=== PATIENT | male | born 1955 | race Caucasian/White ===

== ENCOUNTER → 2017-05-02 12:34 | Outpatient (POV) | payer MEDICAID, SELFPAY ==
[2017-05-02 12:58] VITALS: BP 119/83; PULSE 102; RESP 18; O2SAT 96; BMI 20.2
--- NOTE | 2017-05-02 13:07 | HMH.PAINSOAP ---
[facility] Pain Management SOAP Note Subjective:: This patient is a pleasant 61-year-old white male who we are treating for neck pain as well as low back pain with radiculopathy symptoms. He does have postlaminectomy syndrome of the lumbar spine with lumbar radiculopathy symptoms. He is currently being medically managed with methadone 10 mg 2 tablets 4 times daily. He also does continue to get injections which helps him significantly. He is stable on his dose of medication. He has been appropriate with his Luis and urine drug screen. [facility] #[id number]. It has been 4 months since his last injection so he is needing a repeat cervical epidural steroid injection. We will also give him 2 prescriptions of methadone 10 mg, 2 tablets 4 times a day. Objective:: Alert and oriented ?3 in no acute distress. Decreased range of motion of the cervical spine. Tenderness over the midline of the cervical spine and lumbar spine. Motor strength of the upper and lower extremities is 5/5. There is no gross sensory deficit. Assessment:: Degenerative disc disease of the cervical and lumbar spine with cervical and lumbar radiculopathy symptoms. Plan:: It has been 4 months since his last injection so he is needing a repeat cervical epidural steroid injection. We will also give him 2 prescriptions of methadone 10 mg, 2 tablets 4 times a day.
[2017-05-02 14:05] LABS: Amphetamine/Metha Screen,Urine Negative ng/mL (<1000); Barbiturates Screen,Urine Negative ng/mL (<200); Benzodiazepines Screen,Urine Negative ng/mL (200); Cannabinoid Screen,Urine Negative ng/mL (<50); Cocaine Screen,Urine Negative ng/g (<300); Methadone Screen,Urine Positive ng/mL (<300); Opiate Screen,Urine Negative ng/mL (<300); Phencyclidine Screen,Urine Negative ng/mL (<25)
[2017-05-12 12:18] LABS: Amphetamines Negative (Cutoff=500)
[2017-05-12 12:18] LABS: Methadone Positive (.)
[2017-05-12 12:34] LABS: Methadone (GC/MS) 16340 ng/mL (Cutoff=100)
[2017-05-13 17:05] LABS: Opiates Negative (Cutoff=100)
== END ==
PROVIDERS: Family Provider Emergency Medicine; PCP Emergency Medicine; Visit Provider Anesthesiology
DX: M54.12 Radiculopathy, cervical region (principal); M54.16 Radiculopathy, lumbar region
CPT/HCPCS: 80305; 80361; 99212; G0480

== ENCOUNTER 2017-06-10 14:17 | Day surgery (SDC) | payer MEDICAID, SELFPAY ==
[2017-06-10 14:31] VITALS: BP 121/75; PULSE 98; TEMP 36.8; O2SAT 96; BMI 23.3
--- NOTE | 2017-06-10 15:03 | HMH.PMPROC ---
- Procedure Date: 06/10/17 Time: 15:03 Anesthesiologist:: Chris Oconnor MD Complications:: None Pre-procedure Diagnosis:: Degenerative disc disease of the cervical spine with cervical radiculopathy symptoms Post-procedure Diagnosis:: Same Indications for Procedure:: This patient is a pleasant 61-year-old white male who we are treating for neck pain with cervical radiculopathy symptoms. He has increasing pain in his neck radiating to both shoulders. We will do a cervical epidural steroid injection today to see if this gives him some relief. Procedure Details:: Cervical epidural steroid injection under fluoroscopy Informed consent was obtained and the risks and benefits of the procedure was explained to the patient. The patient was taken to the procedure room placed prone on the procedure table. The neck was prepped using ChloraPrep. The skin and subcutaneous tissues were anesthetized using lidocaine. I placed a 18-gauge epidural needle into the C5-C6 interspace and advanced using [id number] to air and fluoroscopic guidance. After confirmation of needle placement in the epidural space with dye, I injected 3 mL's lidocaine 1.5% and Depo-Medrol 80 mg. The patient tolerated the procedure well with no complications. Plan and Disposition:: We will follow-up with him in 2 weeks. We will reevaluate his symptoms at that time.
[2017-06-10 15:06] VITALS: BP 134/83; BP 136/83; PULSE 108; PULSE 114; RESP 18; RESP 20
--- NOTE | 2017-06-10 15:11 | P.PCN_ITS ---
- Procedure Date: 06/10/17 Time: 15:03 Anesthesiologist:: Chris Oconnor MD Complications:: None Pre-procedure Diagnosis:: Degenerative disc disease of the cervical spine with cervical radiculopathy symptoms Post-procedure Diagnosis:: Same Indications for Procedure:: This patient is a pleasant 61-year-old white male who we are treating for neck pain with cervical radiculopathy symptoms. He has increasing pain in his neck radiating to both shoulders. We will do a cervical epidural steroid injection today to see if this gives him some relief. Procedure Details:: Cervical epidural steroid injection under fluoroscopy Informed consent was obtained and the risks and benefits of the procedure was explained to the patient. The patient was taken to the procedure room placed prone on the procedure table. The neck was prepped using ChloraPrep. The skin and subcutaneous tissues were anesthetized using lidocaine. I placed a 18- gauge epidural needle into the C5-C6 interspace and advanced using loss-of- resistance to air and fluoroscopic guidance. After confirmation of needle placement in the epidural space with dye, I injected 3 mL's lidocaine 1.5% and Depo-Medrol 80 mg. The patient tolerated the procedure well with no complications. Plan and Disposition:: We will follow-up with him in 2 weeks. We will reevaluate his symptoms at that time.
[2017-06-10 15:25] VITALS: BP 149/75; PULSE 94; RESP 18; TEMP 36.7; O2SAT 98
== END 2017-06-10 15:25 | disposition home or self-care (01) ==
LOC: SC.PAINP 14:18
PROVIDERS: Family Provider Emergency Medicine; PCP Emergency Medicine; Visit Provider Anesthesiology
DX: M50.10 Cervical disc disorder with radiculopathy, unspecified cervical region (principal)
CPT/HCPCS: 62321; J1040; Q9966

== ENCOUNTER → 2017-06-27 10:09 | Outpatient (POV) | payer MEDICAID, SELFPAY ==
[2017-06-27 10:17] VITALS: BP 145/82; PULSE 110; RESP 20; TEMP 36.9; O2SAT 97; BMI 20.2
--- NOTE | 2017-06-27 11:37 | HMH.PAINSOAP ---
[facility] Pain Management SOAP Note Subjective:: Patient is a pleasant 61-year-old white male who presents today for follow-up after cervical epidural steroid injection. Patient states he is having significant relief. Patient states he has 80-90% relief for several weeks. Patient's currently being medically managed with methadone 10 mg 2 tab 4 times a day. Patient rates his pain a 6 out of 10 today. He describes his pain is achy, constant, dull. Patient states his pain began in 1997 when he fell from 32 feet. Patient is taking ibuprofen however it is upsetting his stomach. Patient has had some bleeding in the past. The patient and I had a discussion about utilizing anti-inflammatories with gastric protection. Patient's SELENA #[id number] reviewed and appropriate. Patient's urine drug screen has been appropriate in the past. ROS General: no recent weight change, no fever, no sleep disturbances Respiratory: no cough, no shortness of air, no recurring pulmonary infections Cardiovascular/Peripheral Vascular: No chest pain, No palpitations, no edema, no shortness of breath. Gastrointestinal: no incontinence, normal bowel movements reported Genitourinary: no incontinence Musculoskeletal: Back pain, neck pain Psychiatric: normal mood/ affect, Neurological: [denies weakness in extremities], [denies balance issues] Objective:: Physical Exam General: Alert and oriented x3, no acute distress, pleasant and cooperative, [on room air] Lungs: Resps E/U, Symmetrical chest expansion, Eyes: PERRL Musculoskeletal: Flexion and extension of cervical and lumbar spine somewhat guarded secondary to pain, deep tendon reflexes normal, strength in upper and lower extremities [5/5], [abnormal gait noted] Neurological: speech clear, confectionery cooker equal, no gross sensory deficits Assessment:: Degenerative disc disease of the cervical spine with cervical radiculopathy, lumbar postlaminectomy syndrome Plan:: She states he has had an EKG in the last year we will confirm this. Patient understands that he needs to have a yearly EKG. We will refill his methadone today and give him 2 prescriptions. He is to call us for the third prescription. Patient's Selena and urine drug screen both reviewed and appropriate. Dr. Oconnor has reviewed his chart and agrees with this plan of care. We will pill count him in several weeks to ensure compliance. This note was dictated using voice recognition software and may contain errors or omissions
--- NOTE | 2017-06-27 11:41 | P.CONS_ITS ---
[facility] Pain Management SOAP Note Subjective:: Patient is a pleasant 61-year-old white male who presents today for follow-up after cervical epidural steroid injection. Patient states he is having significant relief. Patient states he has 80-90% relief for several weeks. Patient's currently being medically managed with methadone 10 mg 2 tab 4 times a day. Patient rates his pain a 6 out of 10 today. He describes his pain is achy, constant, dull. Patient states his pain began in 1997 when he fell from 32 feet. Patient is taking ibuprofen however it is upsetting his stomach. Patient has had some bleeding in the past. The patient and I had a discussion about utilizing anti-inflammatories with gastric protection. Patient's SELENA # [id number] reviewed and appropriate. Patient's urine drug screen has been appropriate in the past. ROS General: no recent weight change, no fever, no sleep disturbances Respiratory: no cough, no shortness of air, no recurring pulmonary infections Cardiovascular/Peripheral Vascular: No chest pain, No palpitations, no edema, no shortness of breath. Gastrointestinal: no incontinence, normal bowel movements reported Genitourinary: no incontinence Musculoskeletal: Back pain, neck pain Psychiatric: normal mood/ affect, Neurological: [denies weakness in extremities], [denies balance issues] Objective:: Physical Exam General: Alert and oriented x3, no acute distress, pleasant and cooperative, [ on room air] Lungs: Resps E/U, Symmetrical chest expansion, Eyes: PERRL Musculoskeletal: Flexion and extension of cervical and lumbar spine somewhat guarded secondary to pain, deep tendon reflexes normal, strength in upper and lower extremities [5/5], [abnormal gait noted] Neurological: speech clear, accounting coordinator equal, no gross sensory deficits Assessment:: Degenerative disc disease of the cervical spine with cervical radiculopathy, lumbar postlaminectomy syndrome Plan:: She states he has had an EKG in the last year we will confirm this. Patient understands that he needs to have a yearly EKG. We will refill his methadone today and give him 2 prescriptions. He is to call us for the third prescription. Patient's Selena and urine drug screen both reviewed and appropriate. Dr. Oconnor has reviewed his chart and agrees with this plan of care. We will pill count him in several weeks to ensure compliance. This note was dictated using voice recognition software and may contain errors or omissions
== END ==
PROVIDERS: Family Provider Emergency Medicine; PCP Emergency Medicine; Visit Provider Clinical Nurse Specialist Family Health
DX: M96.1 Postlaminectomy syndrome, not elsewhere classified (principal); M54.12 Radiculopathy, cervical region
CPT/HCPCS: 99212

== ENCOUNTER → 2017-09-02 11:02 | Outpatient (CLI) | payer MEDICAID, SELFPAY ==
[2017-09-02 12:15] LABS: Amphetamine/Metha Screen,Urine Negative ng/mL (<1000); Barbiturates Screen,Urine Negative ng/mL (<200); Benzodiazepines Screen,Urine Negative ng/mL (200); Cannabinoid Screen,Urine Negative ng/mL (<50); Cocaine Screen,Urine Negative ng/g (<300); Methadone Screen,Urine Positive ng/mL (<300); Opiate Screen,Urine Negative ng/mL (<300); Phencyclidine Screen,Urine Negative ng/mL (<25)
[2017-09-09 06:27] LABS: Opiates Negative (Cutoff=100)
== END ==
PROVIDERS: Visit Provider Clinical Nurse Specialist Family Health
DX: Z79.899 Other long term (current) drug therapy (principal)
CPT/HCPCS: 80305; 80361; 80365; G0480

== ENCOUNTER → 2017-09-05 12:48 | Outpatient (POV) | payer MEDICAID, SELFPAY ==
[2017-09-05 13:13] VITALS: BP 123/66; PULSE 75; RESP 18; O2SAT 99; BMI 20.9
--- NOTE | 2017-09-05 15:47 | HMH.PAINSOAP ---
[facility] Pain Management SOAP Note Subjective:: Patient is a pleasant 62-year-old white male who presents today for medication refills. Patient is currently being managed with methadone 10 mg 2 tabs p.o. 4 times daily. Patient rates his pain a 3 out of 10 today. He describes his pain is achy constant and dull. Patient states that this all began in 1997 when he fell from 32 feet. Patient would like to pursue another cervical epidural steroid injection. Patient states he gets 89% relief with these for several weeks. Patient is unable to take anti-inflammatories due to gastric issues. Patient has completed physical therapy in the past. Patient's SELENA #[id number] reviewed and appropriate. Patient's urine drug screen did show positive for amphetamines, we this out for confirmation. ROS General: no recent weight change, no fever, no sleep disturbances Respiratory: no cough, no shortness of air, no recurring pulmonary infections Cardiovascular/Peripheral Vascular: No chest pain, No palpitations, no edema, no shortness of breath. Gastrointestinal: no incontinence, normal bowel movements reported Genitourinary: no incontinence Musculoskeletal: Back pain, neck pain Psychiatric: normal mood/ affect Neurological: [denies weakness in extremities], [denies balance issues] Objective:: Physical Exam General: Alert and oriented x3, no acute distress, pleasant and cooperative, [on room air] Lungs: Resps E/U, Symmetrical chest expansion, Eyes: PERRL Musculoskeletal: Flexion and extension of her vehicle and lumbar spine somewhat guarded secondary to pain, deep tendon reflexes normal, strength in upper and lower extremities [5/5], antalgic gait noted Neurological: speech clear, buyer tobacco head equal, no gross sensory deficits Assessment:: Degenerative disc disease of the cervical spine with cervical radiculopathy, lumbar postlaminectomy syndrome Plan:: We will refill the patient's methadone 10 mg 2 tabs p.o. 4 times daily. We will give him 2 months worth of prescriptions. Patient's urine drug screen is pending confirmation. Patient's SELENA reviewed. Patient can pickler helper her third month prescription if everything is appropriate. Dr. Oconnor has reviewed this chart and agrees with this plan of care. I will follow-up with this patient in 3 months. We will also schedule a cervical C5-C6 epidural steroid injection. Given the efficacy of this in the past. Patient has been prescribed a controlled substance after being counseled on the medication, medication safety, and possible side effects. SELENA report has been obtained and reviewed prior to prescription and found to be appropriate. Opioid contract was reviewed and signed by the patient, and that they have agreed to all of the terms set forth by our compliance program. This note was dictated using voice recognition software and may contain errors or omissions
--- NOTE | 2017-09-05 15:50 | P.CONS_ITS ---
[facility] Pain Management SOAP Note Subjective:: Patient is a pleasant 62-year-old white male who presents today for medication refills. Patient is currently being managed with methadone 10 mg 2 tabs p.o. 4 times daily. Patient rates his pain a 3 out of 10 today. He describes his pain is achy constant and dull. Patient states that this all began in 1997 when he fell from 32 feet. Patient would like to pursue another cervical epidural steroid injection. Patient states he gets 89% relief with these for several weeks. Patient is unable to take anti-inflammatories due to gastric issues. Patient has completed physical therapy in the past. Patient's SELENA # [id number] reviewed and appropriate. Patient's urine drug screen did show positive for amphetamines, we this out for confirmation. ROS General: no recent weight change, no fever, no sleep disturbances Respiratory: no cough, no shortness of air, no recurring pulmonary infections Cardiovascular/Peripheral Vascular: No chest pain, No palpitations, no edema, no shortness of breath. Gastrointestinal: no incontinence, normal bowel movements reported Genitourinary: no incontinence Musculoskeletal: Back pain, neck pain Psychiatric: normal mood/ affect Neurological: [denies weakness in extremities], [denies balance issues] Objective:: Physical Exam General: Alert and oriented x3, no acute distress, pleasant and cooperative, [ on room air] Lungs: Resps E/U, Symmetrical chest expansion, Eyes: PERRL Musculoskeletal: Flexion and extension of her vehicle and lumbar spine somewhat guarded secondary to pain, deep tendon reflexes normal, strength in upper and lower extremities [5/5], antalgic gait noted Neurological: speech clear, principal quality engineer equal, no gross sensory deficits Assessment:: Degenerative disc disease of the cervical spine with cervical radiculopathy, lumbar postlaminectomy syndrome Plan:: We will refill the patient's methadone 10 mg 2 tabs p.o. 4 times daily. We will give him 2 months worth of prescriptions. Patient's urine drug screen is pending confirmation. Patient's SELENA reviewed. Patient can car pick up driver her third month prescription if everything is appropriate. Dr. Oconnor has reviewed this chart and agrees with this plan of care. I will follow-up with this patient in 3 months. We will also schedule a cervical C5-C6 epidural steroid injection. Given the efficacy of this in the past. Patient has been prescribed a controlled substance after being counseled on the medication, medication safety, and possible side effects. SELENA report has been obtained and reviewed prior to prescription and found to be appropriate. Opioid contract was reviewed and signed by the patient, and that they have agreed to all of the terms set forth by our compliance program. This note was dictated using voice recognition software and may contain errors or omissions
== END ==
PROVIDERS: Family Provider Emergency Medicine; PCP Emergency Medicine; Visit Provider Clinical Nurse Specialist Family Health
DX: M54.12 Radiculopathy, cervical region (principal)
CPT/HCPCS: 99212

== ENCOUNTER → 2020-09-05 17:09 | Outpatient (CLI) | payer MEDICAID, SELFPAY ==
[2020-09-05 17:55] LABS: Basophils # 0.1 K/mm3 (0-0.2); Basophils % 0.7 % (0.1-2.0); Chloride 100 mmol/L (98-107); Eosinophils # 0.4 K/mm3 (0.0-0.4); Eosinophils % 5.1 % (0.1-12.0); Hematocrit 41.9 % (42.0-52.0); Hemoglobin 14.3 g/dL (14.1-18.0); Lymphocytes # 2.5 K/mm3 (0.7-4.5); Lymphocytes % 33.1 % (10-50); Mean Corpuscular HGB Conc 34.1 g/dL (31.8-35.4); Mean Corpuscular Hemoglobin 31.2 pg (27.0-31.2); Mean Corpuscular Volume 91.5 fl (80-94); Mean Platelet Volume 11.2 fl (7.4-10.4); Monocytes # 0.5 K/mm3 (0.1-1.0); Monocytes % 6.1 % (1.7-9.3); Neutrophils # 4.1 K/mm3 (1.8-7.8); Platelet Count 186 K/mm3 (142-424); Red Blood Count 4.58 M/mm3 (4.60-6.20); Red Cell Distribution Width 12.9 % (11.5-17.5); White Blood Count 7.4 K/mm3 (4.8-10.8)
[2020-09-05 17:56] LABS: Potassium 4.6 mmoL/L (3.5-5.1); Sodium 142 mmol/L (136-145)
[2020-09-05 17:58] LABS: Alanine Aminotransferase 11 U/L (12-78); Albumin Level 4.6 g/dl (3.5-5.0); Albumin/Globulin Ratio 1.4 (1.1-1.8); Alkaline Phosphatase 83 U/L (38-126); Anion Gap 15.6 mEq/L (5-15); Aspartate Amino Transferase 41 U/L (17-59); Bilirubin,Total 0.3 mg/dl (0.2-1.3); Blood Urea Nitrogen 16 mg/dl (9-20); Carbon Dioxide 31 mmol/L (22.0-30.0); Estimated Glomerular Filt Rate 67 ml/min (>60); GFR (African American) 82 ML/MIN (>60); Globulin 3.2 g/dL (1.3-3.2); Total Protein,Serum 7.8 g/dl (6.3-8.2)
[2020-09-05 17:59] LABS: Calcium 9.1 mg/dl (8.4-10.2); Glucose 104 mg/dl (74-100)
[2020-09-05 18:16] LABS: Free T4 (Free Thyroxine) 1.41 ng/dl (0.78-2.19)
[2020-09-05 18:46] LABS: Erythrocyte Sedimentation Rate 17 mm/hr (0-20)
== END ==
PROVIDERS: Visit Provider Emergency Medicine
DX: Z00.00 Encounter for general adult medical examination without abnormal findings (principal); R10.32 Left lower quadrant pain; R11.0 Nausea; F41.9 Anxiety disorder, unspecified; F17.210 Nicotine dependence, cigarettes, uncomplicated
CPT/HCPCS: 80053; 84439; 84443; 85025; 85651

== ENCOUNTER → 2020-10-17 17:22 | Outpatient (CLI) | payer MEDICAID, SELFPAY ==
[2020-10-17 18:46] LABS: Amphetamine/Metha Screen,Urine Negative ng/ml (<1000)
[2020-10-17 18:47] LABS: Barbiturates Screen,Urine Negative ng/ml (<200)
[2020-10-17 18:48] LABS: Benzodiazepines Screen,Urine Negative ng/ml (<200); Cannabinoid Screen,Urine Negative ng/ml (<50)
[2020-10-17 18:49] LABS: Cocaine Screen,Urine Negative ng/ml (<300); Methadone Screen,Urine Positive ng/ml (<300)
[2020-10-17 18:50] LABS: Opiate Screen,Urine Positive ng/ml (<300)
[2020-10-17 18:51] LABS: Phencyclidine Screen,Urine Negative ng/ml (<25)
== END ==
PROVIDERS: Visit Provider Emergency Medicine
DX: Z79.899 Other long term (current) drug therapy (principal)
CPT/HCPCS: 80305

== ENCOUNTER 2020-10-29 12:55 | Outpatient (RCR) | payer MEDICAID, SELFPAY ==
--- NOTE | 2020-10-29 13:47 | HMH.PTOPEV ---
PT Outpatient Evaluation Rehab PT Outpatient Evaluation Start: 10/29/20 13:02 Freq: Status: Active Protocol: Document 10/29/20 13:33 TITOARBEN (Rec: 10/29/20 13:47 RICHY [id number]) Electronically Signed By Twin Castro, PT 10/29/20 13:33 Outpatient Therapy Subjective History Subjective History Patient is a 65 year old male presenting to outpatient PT with reports of chronic lumbar spine pain with BLE radicular symptoms to B toes. No recent imaging to report. Patient also complains of BLE weakness and poor balance resulting in falls x 3 over the past 2 months. Patient underwent LS laminectomy in 1999. Unable to specify which segments. Comorbidities include hx of COPD, L wrist ORIF and L knee scope. Chief Complaint Pain,Stiff,Paresthesia, Weakness Symptom Type Ache,Sharp,Dull,Burning, Numbness,Tingling Symptoms Aggravated By Standing,Bending/Stooping, Physical Activity,Walking, Lifting Prior Functional Limitations Standing,Walking Current Functional Limitations Lifting,Housework,Driving, Sleeping,Standing,Squatting, Recreation Activity,Walking, Stairs,Balance,Bending/ Stooping Symptom Description Constant but Variable Level of pain today (0-10) 8 Pain scale - at its best (0-10) 6 Pain scale - at its worst (0-10) 9 Lumbopelvic Eval Posture Thoracic Spine Posture Standing Position Increased Kyphosis Lumbar Spine Posture Standing Position Decreased Lordosis Assistive device Assistive Devices Straight Cane Palapation tenderness bilateral thoracic spinal tenderness Yes: T12-S1 3/4 lumbar spinal tenderness Yes: paraspinal tenderness Yes: buttock tenderness Yes: Lumbar/Sacral Palpation Findings Tenderness Lumbar/Sacral Palpation Overall Comment B SIJ 3/4 Accessory Movement T12 bilateral L-spine Vertebrae Accessory Movements Central P/A [place] that Elicit Symptoms L2 bilateral L3 bilateral L4 bilateral L5 bilateral S1 bilateral Range of Motion Lumbar Sp
== END 2020-10-29 12:59 | disposition home or self-care (01) ==
LOC: PT 12:55
PROVIDERS: Visit Provider Emergency Medicine
DX: M54.5 Low back pain (principal)
CPT/HCPCS: 97163

== ENCOUNTER 2024-11-13 10:59 | Outpatient (CLI) | payer MEDICARE, MEDICAID, SELFPAY ==
[2024-11-13 15:23] LABS: Hematocrit 41.3 % (42.0-52.0); Hemoglobin 14.0 g/dL (14.1-18.0); Immature Granulocytes % 0.1 %; Mean Corpuscular HGB Conc 33.9 g/dL (31.8-35.4); Mean Corpuscular Hemoglobin 30.8 pg (27.0-31.2); Mean Corpuscular Volume 91.0 fl (80-94); Nucleated Red Blood Cells % 0 %; Platelet Count 176 K/mm3 (142-424); Red Blood Count 4.54 M/mm3 (4.60-6.20); Red Cell Distribution Width-SD 41.0 fL; White Blood Count 7.4 K/mm3 (4.8-10.8)
[2024-11-13 16:15] LABS: Alanine Aminotransferase 12 U/L (12-78); Albumin Level 4.8 g/dl (3.5-5.0); Albumin/Globulin Ratio 1.7 (1.1-1.8); Alkaline Phosphatase 75 U/L (38-126); Anion Gap 11.1 mEq/L (5-15); Aspartate Amino Transferase 44 U/L (17-59); Bilirubin,Total 0.4 mg/dl (0.2-1.3); Blood Urea Nitrogen 15 mg/dl (9-20); Calcium 9.5 mg/dl (8.4-10.2); Carbon Dioxide 30 mmol/L (22.0-30.0); Chloride 103 mmol/L (98-107); Cholesterol 167 mg/dl (140-200); Creatinine,Serum 1.00 mg/dl (0.66-1.25); Estimated Glomerular Filt Rate 74 ml/min (>60); GFR (African American) 90 ML/MIN (>60); Globulin 2.8 g/dL (1.3-3.2); Glucose 84 mg/dl (74-100); HDL Cholesterol 47 mg/dl (40-60); Potassium 4.1 mmoL/L (3.5-5.1); Sodium 140 mmol/L (136-145); Total Protein,Serum 7.6 g/dl (6.3-8.2); Triglycerides 110 mg/dl (30-150)
[2024-11-13 16:46] LABS: Thyroid Stimulating Hormone 2.10 uIU/mL (0.465-4.68)
--- OUTSIDE RECORDS SUMMARY | 2024-11-14 12:13 | XMS_ITS | Encounter Summary ---
Author Organization [employer] ([place], [place], [place], [place]) Address [address] [place] [address] Care Team Providers Care Slitter Processed Film Name Role Phone Unavailable Primary Care Provider Unavailabl e Reason for Referral * CAT Scan (Routine) - Closed Specialty Diagnoses / Procedures Referred By Contac t Referred To Contact Radiology Diagnoses Cigarette smoker Procedures CT Lung Screening Initial Italia Honeycutt NP [address] [place] [address] Phone: tel: fax: [facility] [address] [place] [address] Phone: tel: fax: Referral ID Status Reason Start Date Expiration Date Visits Re quested Visits Authorized [id number] Closed 06/21/2023 06/20/2024 1 1 Encounter Details Date Type Department Care Team (Late st Contact Info) Description 06/21/2023 Outside Orders [facility] [address] [place] [address] Italia Honeycutt NP [address] [place] [address] Cigarette smoker (Primary Dx) Social History Tobacco Use Types Packs/Day Years Used Date Smoking Tobacco: Never Assessed Food Insecurity Answer Date Recorded Food run out past 12 months Not on file 06/02 Food did not last past 12 months Not on file 06/21/2023 Employment Answer Date Recorded Help finding and keeping a job Not on file 0 06/21/2023 Family and Community Support Answer Venancio e Recorded Help with Day to Day Activities Not on file 06/21/2023 Feeling Lonely or Isolated Not on file 06/20 Educational Attainment Answer Date Anton rded Speak language other than Zambian at home Not on file 06/21/2023 Want help with school or training Not on file 06/21/2023 Substance Use Answer Date Recorded Used prescription meds for non-medical reasons N ot on file 06/21/2023 Used illegal drugs past 12 months Not on file 06/21/2023 Sex and Gender Information Value Date Recorded Sex Assigned at Not on file Legal Sex Male 7:01 PM CDT Gender Identity Not on file Sexual Orientation Not on file documented as of this encounter Plan of Treatment Not on file documented as of this encounter Results * CT Lung Screening Initial (07/12/2023 11:50 AM EDT) Anatomical Region Laterality Modality Chest, Lung Computed Tomogra phy (CT) 07/12/2023 1:07 PM EDT Impressions 07/12/2023 2:39 PM EDT 4 mm left upper lobe nodule is likely unchanged. Lung RADS category 2. 12 month low-dose chest CT recommended. Images reviewed, interpreted, and dictated by Dr. Hazel Jorgensen. Transcribed by Jody Araujo PA-C. Narrative 07/12/2023 2:[address] SCAN OF THE CHEST 07/12/2023 11:34 AM HISTORY: Current smoker with 40 pack-year smoking history. COMPARISON: September 2019. PROCEDURE: Axial images were obtained from the lung apex to the mid abdomen by computed tomography. Low dose protocol was utilized. The CTDIvol is 1.84 mGy. The DLP is 75.69 mGy-cm. This study was performed with techniques to keep radiation doses as low as reasonably achievable, (ALARA). Individualized dose reduction techniques using automated exposure control or adjustment of mA and/or kV according to the patient size were employed. FINDINGS: CHEST: There is no axillary adenopathy. There is no hilar or mediastinal adenopathy. The heart is proper size. There is no pericardial or pleural effusion. There is a 4 mm left upper lobe nodule. This is best seen on image 16 and is likely unchanged. There is emphysema and biapical scar. There is evidence of prior granulomatous disease. Lungs are otherwise clear. There is no consolidation. Limited images of the upper abdomen demonstrate nonobstructing right renal stones. us Italia Honeycutt NP IMG CT ORDERABLES Final Result documented in this encounter Visit Diagnoses Diagnosis Cigarette smoker- Primary Tobacco use disorder Cigarette smoker Tobacco use disorder documented in this encounter
--- OUTSIDE RECORDS SUMMARY | 2024-11-14 12:13 | XMS_ITS | Encounter Summary ---
Author Organization [employer] ([place], [place], [place], [place]) Address [address] [place] [address] Care Team Providers Care Clutch Specialist Name Role Phone Unavailable Primary Care Provider Unavailabl e Encounter Details Date Type Department Care Team (Late st Contact Info) Description 09/11/2019 Transcribed Document [facility] [place] Family Medicine [facility] [place] [address] ProviderGraciela MD [address] [place] [id number] Social History Tobacco Use Types Packs/Day Years Used Date Smoking Tobacco: Never Assessed Sex and Gender Information Value Date Recorded Sex Assigned at Not on file Legal Sex Male 7:01 PM CDT Gender Identity Not on file Sexual Orientation Not on file documented as of this encounter Miscellaneous Notes * Cerner Conversion Note - Historical ProviderMD - 09/11/2019 1:38 PM CDT documented in this encounter Plan of Treatment Not on file documented as of this encounter Visit Diagnoses Not on filedocumented in this encounter
--- OUTSIDE RECORDS SUMMARY | 2024-11-14 12:13 | XMS_ITS | Encounter Summary ---
Author Organization [employer] ([place], [place], [place], [place]) Address [address] [place] [address] Care Team Providers Care Recycling Program Manager Name Role Phone Unavailable Primary Care Provider Unavailabl e Encounter Details Date Type Department Care Team (Late st Contact Info) Description 09/11/2019 Transcribed Document [facility] [place] Family Medicine [place] [address] ProviderGraciela MD [address] [place] [id number] Social History Tobacco Use Types Packs/Day Years Used Date Smoking Tobacco: Never Assessed Sex and Gender Information Value Date Recorded Sex Assigned at Not on file Legal Sex Male 7:01 PM CDT Gender Identity Not on file Sexual Orientation Not on file documented as of this encounter Miscellaneous Notes * Cerner Conversion Note - Graciela ProviderMD - 09/11/2019 1:35 PM CDT Care Management Assessment/Plan Entered On: 09/11/2019 13:37 EDT Performed On: 09/11/2019 13:35 EDT by Moreno Venegas, Cuffing Machine Operator Care Management Note Documentation Status Complete : Yes Moreno Venegas Cuffing Machine Operator - 09/11/2019 13:35 EDT Discharge Planning Details Follow-up Appointments Made #1 : [facility]- [address] [place] [address] Office [phone] no email address Appointment Scheduled For [facility] Appointment Month: September, Appointment Date: 21 04 20 PM Follow-up Appointment Date #1 : 09/20/2019 13:20 EDT Discharge Planning Details Note : Patient called in, scheduled with Deon Verde, added to discharge summary and adhoc notes. Patient was ED at [facility]- [address] [place] [address] Office [phone] no email address Appointment Scheduled For [facility] Appointment Month: September, Appointment Date: 21 04 20 PM Moreno Venegas, Cuffing Machine Operator - 09/11/2019 13:35 EDT documented in this encounter Plan of Treatment Not on file documented as of this encounter Visit Diagnoses Not on filedocumented in this encounter
--- OUTSIDE RECORDS SUMMARY | 2024-11-14 12:13 | XMS_ITS | Encounter Summary ---
Author Organization [employer] ([place], [place], [place], [place]) Address [address] [place] [address] Care Team Providers Care It Manager Name Role Phone Unavailable Primary Care Provider Unavailabl e Encounter Details Date Type Department Care Team (Late st Contact Info) Description 02/06/2020 Transcribed Document [facility] Pulm & Critical Care Medicine [address] [place] [address] [place] [id number] [place] [address] [place] [address] [id number] [place], [place] [id number] Social History Tobacco Use Types Packs/Day Years Used Date Smoking Tobacco: Never Assessed Sex and Gender Information Value Date Recorded Sex Assigned at Not on file Legal Sex Male 7:01 PM CDT Gender Identity Not on file Sexual Orientation Not on file documented as of this encounter Miscellaneous Notes * Cerner Conversion Note - Yanna Nettles MD - 02/06/2020 6:46 PM EST DATE OF SERVICE: 02/05/2020 DEMOGRAPHIC DATA: Gender: Male. Age: 65. Race: . Height: 71 inches. Weight: 130 pounds. BMI: 18.24. PULMONARY FUNCTION TEST: SPIROMETRY: Pre bronchodilator: FVC 5.59 L, 117% of predicted; FEV1 2.85 L, 80% predicted; FEV1/FVC ratio 51%, 68% of predicted. Post bronchodilator: FVC 5.84 L, 122% of predicted; FEV1 3.08 L, 86% of predicted; FEV1/FVC ratio 53%, 70% of predicted. Bronchodilator response: Change in FVC +5% and change in FEV1 +8%. LUNG VOLUMES BY PLETHYSMOGRAPHY: Total lung capacity 9.34 L, 128% of predicted; vital capacity 6.23 L, 130% predicted; RV/TLC ratio is 33%, 86% of predicted. DIFFUSION STUDY: DLCO of 15.0, 54% of predicted; DLCO adjusted for lung volume 1.87, 46% of predicted. INTERPRETATION: Spirometry data is acceptable and reproducible for interpretation. Based on ATS criteria, spirometry showed mild obstruction to airflow with nonsignificant bronchodilator response. Absence of bronchodilator response does not preclude bronchodilator therapy for clinical benefit. Lung volumes by plethysmography show moderate hyperinflation with no air trapping. Diffusion study shows moderate diffusion impairment for carbon monoxide. Please correlate clinically. SIX-MINUTE WALK TEST: Baseline parameters: Heart rate 103, blood pressure 126/82, and saturation 96% on room air. At 6 minutes, heart rate 102, blood pressure 129/94, and saturation 94% on room air. At 4-minute rest, heart rate 93, blood pressure 137/86, and saturation 96% on room air. Total distance walked in 6 minutes, 1000 feet, height 305 meters. INTERPRETATION: Six-minute walk test was performed as per ATS standards. The patient walked about 305 meters in 6 minutes. No significant exercise-induced desaturation noted during 6-minute walk test. The patient did not qualify for oxygen supplementation therapy. Please correlate clinically. /[id number] Yanna Nettles MD NB/AQ / NB / MODL /[id number] documented in this encounter Plan of Treatment Not on file documented as of this encounter Visit Diagnoses Not on filedocumented in this encounter
--- OUTSIDE RECORDS SUMMARY | 2024-11-14 12:14 | XMS_ITS | Encounter Summary ---
Author Organization [employer] ([place], [place], [place], [place]) Address [address] [place] [address] Care Team Providers Care Websphere Process Server Developer Name Role Phone Unavailable Primary Care Provider Unavailabl e Encounter Details Date Type Department Care Team (Late st Contact Info) Description 09/10/2019 Transcribed Document [facility] [place] [facility] [place] [address] ProviderGraciela MD [address] [place] [id number] Social History Tobacco Use Types Packs/Day Years Used Date Smoking Tobacco: Never Assessed Sex and Gender Information Value Date Recorded Sex Assigned at Not on file Legal Sex Male 7:01 PM CDT Gender Identity Not on file Sexual Orientation Not on file documented as of this encounter Miscellaneous Notes * Cerner Conversion Note - Graciela ProviderMD - 09/10/2019 10:18 AM CDT ED Assessment Entered On: 09/10/2019 11:09 EDT Performed On: 09/10/2019 10:15 EDT by Caryn Ramachandran, PARTS ANALYST Quick Look Assessment Level of Consciousness : Alert, Awake Affect/Behavior : Appropriate, Calm, Cooperative Orientation : Oriented x 4 Skin Temperature : Warm Skin Description : Normal for ethnicity Caryn Ramachandran RN - 09/10/2019 11:08 EDT ED General-Functional Assess Information Obtained From : Patient Preferred Communication Mode : Verbal Communication Barrier : None Primary Language : [place] Any Spiritual/Cultural Needs or Requests : No Currently in Unsafe Situation : No Caryn Ramachandran RN - 09/10/2019 11:08 EDT Social Habits Smoking Status : 10 or more cigarettes (1/2 pack or more)/day in last 30 days Smokeless Tobacco Status : Never Desires Tobacco Cessation Medication : No Reason for No Tobacco Cessation Medication : ED/procedural patient only Desires Tobacco Cessation Calc : 1 Caryn Ramachandran RN - 09/10/2019 11:08 EDT Social History (As Of: 09/10/2019 11:09:55 EDT) Tobacco: 10 or more cigarettes (1/2 pack or more)/day in last 30 days Smoking Status. (Last Updated: 09/10/2019 10:35:56 EDT by ANJEL RASMUSSEN PA-C) Home/Environment: Living situation: Home/Independent. (Last Updated: 09/10/2019 10:35:42 EDT by ANJEL RASMUSSEN PA-C) Cardiovascular ASMT, ED Cardiovascular Assessment WDL : WDL with exceptions Cardiovascular Symptoms : Chest pain with activity Detailed Cardiovascular Assessment : Open Caryn Ramachandran RN - 09/10/2019 11:08 EDT Cardiovascular ASMT, Detailed Cardiac Rhythm : Normal sinus rhythm Caryn Ramachandran RN - 09/10/2019 11:08 EDT Respiratory Breath Sounds Auscultated : Posterior, Anterior Respiratory Assessment WDL : WDL with exceptions Cough : None Sputum Amount : Scant Sputum Color : Dark Caryn Ramachandran RN - 09/10/2019 11:08 EDT Gastrointestinal ED Gastrointestinal Assessment WDL : WDCaryn Woo RN - 09/10/2019 11:08 EDT Genitourinary Assessment, ED Genitourinary Assessment WDL : WDCaryn Woo RN - 09/10/2019 11:08 EDT Neurologic ASMT, ED Neurologic Assessment WDL : WDCaryn Woo RN - 09/10/2019 11:08 EDT documented in this encounter Plan of Treatment Not on file documented as of this encounter Visit Diagnoses Not on filedocumented in this encounter
--- OUTSIDE RECORDS SUMMARY | 2024-11-14 12:14 | XMS_ITS | Encounter Summary ---
Author Organization [employer] ([place], [place], [place], [place]) Address [address] [place] [address] Care Team Providers Care Can Top Setter Name Role Phone Unavailable Primary Care Provider Unavailabl e Encounter Details Date Type Department Care Team (Late st Contact Info) Description 09/10/2019 Transcribed Document [facility] [facility] [address] [place] [id number] ProviderGraciela MD [address] [place] [id number] Social History Tobacco Use Types Packs/Day Years Used Date Smoking Tobacco: Never Assessed Sex and Gender Information Value Date Recorded Sex Assigned at Not on file Legal Sex Male 7:01 PM CDT Gender Identity Not on file Sexual Orientation Not on file documented as of this encounter Miscellaneous Notes * Cerner Conversion Note - Graciela Reddy MD - 09/10/2019 3:31 PM CDT [place] [address] BLAZE IRWIN :1955 Visit Time:09/10/2019 Your Visit Summary Your Care Team Primary Provider: ANJEL RASMUSSEN PA-C Secondary Provider: Your Diagnosis Chest pain Chest pain Lung nodule/lymphnode Shortness of breath Medical Information You may obtain a copy of your Emergency Department visit from Medical Records by calling the hospital phone number listed above and asking to be directed to the Medical Records Department. If you had special tests, such as EKG???s or X-rays, the interpretation of your tests given to you by the Emergency Department Physician is a preliminary report. Some fractures and illnesses fail to show up on preliminary tests. These will be reviewed again and we will call you if there are any new suggestions. If your symptoms continue notify your physician. After you leave, you should follow the instructions provided. What to do next Follow-Up Appointments Follow Up with [facility] When Within 3 to 5 days Comments Follow up Pulmonary and evaluate your COPD and christiano nodule. Follow up with Primary Care. Return to ER if symptoms worse or different. Where: [address] [facility] [place] [address]- Business (1) Follow Up with [facility] When Within 3 to 5 days Where: [address] [facility], [address] [place] [address]- Business (1) Follow Up with [facility] When Within 3 to 5 days Where: [address] [facility] [address] [place] [id number]- [facility] (1) Allergies No Known Allergies Immunizations This Visit No Immunizations Found Medications What How Much When Instructions Next Dose albuterol (ProAir HFA 90 mcg/ inh inhalation aerosol) 2 Puff(s) Inhalation Every 6 Hours Printed Prescription albuterol (Proventil 2.5 mg/ 3 mL (0.083%) inhalation solution) 3 Milliliter(s) Nebulized Inhalation Every 6 Hours Printed Prescription predniSONE (predniSONE 20 mg oral tablet) See instructions 2 Tab Oral Daily x 3 days, 1 Tab Oral Daily x 3 days Printed Prescription The home medications listed are only as accurate as the information you provided. Please continue taking all of your medications prescribed by your Primary Care Provider unless specifically told to change or discontinue the medication. Please direct any questions regarding your home medications to your Primary Care Provider. Take your medications faithfully. Do NOT skip medication. Do NOT stop taking medications without the direction of a physician. Carry a list of your medications with you at all times, and take this medication list with you to your first follow up visit. Report any side effects. Avoid herbal remedies unless discussed with your physician. As part of your treatment plan, your physician may have prescribed a limited course of a controlled substance. This medication may be given to help people with moderate or severe pain or for other medical conditions, but there are risks involved with treatment. Common side effects may include nausea, constipation, drowsiness, sweating, itching, dry mouth, and rash. More serious side effects may include cognitive and motor impairment, like problems with thinking, concentrating, alertness, and movement (e.g. slowed reflexes), and driving and operating heavy machinery can be dangerous. It is important for you to talk to your physician if you have these side effects or questions. These controlled substances can produce physical dependence and be habit-forming if taken for an extended period of time, which means that the body has gotten used to them and may experience withdrawal symptoms if they are abruptly stopped. Withdrawal symptoms can include runny nose, sweating, goose bumps, diarrhea, abdominal cramping, rapid heartbeat, difficulty sleeping, and nervousness. Please dispose of unused and medications per pharmacy guidance. Test Results Laboratory or Other Results This Visit (last charted value for your 09/10/2019 visit) Hematology 09/10/2019 10:33 AM WBC: 6.4 K/uL -- Normal range between ( 3.6 and 9.5 ) RBC: 4.12 Million/uL -- Normal range between ( 4.20 and 5.70 ) Hct: 38.8 % -- Normal range between ( 40.1 and 51.0 ) Hgb: 13.1 g/dL -- Normal range between ( 13.5 and 17.3 ) Platelet Count: 159 K/uL -- Normal range between ( 163 and 369 ) MCH: 31.8 pg -- Normal range between ( 25.6 and 32.2 ) MCHC: 33.8 Gram/dL -- Normal range between ( 32.2 and 36.5 ) MCV: 94.2 fL -- Normal range between ( 79.0 and 94.8 ) Slide Review: No Eos %: 4.2 % -- Normal range between ( 0.0 and 7.0 ) Refugio #: 0.50 K/uL -- Normal range between ( 0.16 and 1.00 ) Eos #: 0.27 x10(3)/uL -- Normal range between ( 0.00 and 0.80 ) Refugio %: 7.8 % -- Normal range between ( 3.0 and 9.0 ) Baso %: 0.9 % -- Normal range between ( 0.0 and 1.5 ) Baso #: 0.06 x10(3)/uL -- Normal range between ( 0.00 and 0.20 ) RDW: 12.5 % -- Normal range between ( 11.7 and 14.9 ) Neut %: 58.5 % -- Normal range between ( 34.0 and 71.0 ) Neut #: 3.72 K/uL -- Normal range between ( 1.56 and 6.13 ) Lymph %: 28.1 % -- Normal range between ( 19.3 and 53.1 ) Lymph #: 1.79 x10(3)/uL -- Normal range between ( 1.00 and 3.90 ) MPV: 12.9 fL -- Normal range between ( 9.4 and 12.4 ) IG#: 0.03 x10(3)/uL -- Normal range between ( 0.00 and 0.05 ) IG%: 0.50 % -- Normal range between ( 0.00 and 0.60 ) General Chemistry 09/10/2019 10:46 AM Creatinine Level: 1.10 mg/dL -- Normal range between ( 0.70 and 1.30 ) Sodium Level: 137 mmol/L -- Normal range between ( 136 and 146 ) Potassium Level: 4.0 mmol/L -- Normal range between ( 3.5 and 5.1 ) Chloride Level: 105 mmol/L -- Normal range between ( 102 and 112 ) Carbon Dioxide Level: 28 mmol/L -- Normal range between ( 21 and 32 ) Anion Gap: 8 -- Normal range between ( 9 and 20 ) Bilirubin Total: 0.3 mg/dL -- Normal range between ( 0.2 and 1.2 ) A/G Ratio: 1.0 -- Normal range between ( 1.1 and 2.5 ) ALT: 16 Units/Liter -- Normal range between ( 16 and 61 ) AST: 36 Units/Liter -- Normal range between ( 5 and 37 ) Globulin: 3.9 Gram/dL -- Normal range between ( 1.5 and 4.5 ) Alk Phos: 78 Units/Liter -- Normal range between ( 27 and 136 ) Bun/Creatinine: 16.4 -- Normal range between ( 8.0 and 20.0 ) Calcium Level: 8.5 mg/dL -- Normal range between ( 8.4 and 10.1 ) eGFR : >60 mL/min/1.73m2 eGFR NonAfrican: >60 mL/min/1.73m2 Glucose Level: 109 mg/dL -- Normal range between ( 74 and 106 ) Blood Urea Nitrogen: 18 mg/dL -- Normal range between ( 7 and 22 ) Protein Total: 7.8 Gram/dL -- Normal range between ( 6.4 and 8.2 ) Albumin Level: 3.9 Gram/dL -- Normal range between ( 3.4 and 5.0 ) 09/10/2019 10:33 AM Lactic Acid Level: 1.1 mmol/L -- Normal range between ( 0.4 and 2.0 ) Cardiac Specific Markers 09/10/2019 10:33 AM Troponin I Ultra: <0.015 ng/mL -- Normal range between ( 0.015 and 0.045 ) ProBNP: 47 pg/mL -- Normal range between ( 0 and 125 ) Diagnostic Radiology 09/10/2019 10:41 AM CR Chest 1 Vw Portable: CR Chest 1 Vw Portable Education Materials Chronic Obstructive Pulmonary Disease Chronic obstructive pulmonary disease (COPD) is a long-term (chronic) condition that affects the lungs. COPD is a general term that can be used to describe many different lung problems that cause lung swelling (inflammation) and limit airflow, including chronic bronchitis and emphysema. If you have COPD, your lung function will probably never return to normal. In most cases, it gets worse over time. However, there are steps you can take to slow the progression of the disease and improve your quality of life. What are the causes? This condition may be caused by: ??? Smoking. This is the most common cause. ??? Certain genes passed down through families. What increases the risk? The following factors may make you more likely to develop this condition: ??? Secondhand smoke from cigarettes, pipes, or cigars. ??? Exposure to chemicals and other irritants such as fumes and dust in the work environment. ??? Chronic lung conditions or infections. What are the signs or symptoms? Symptoms of this condition include: ??? Shortness of breath, especially during physical activity. ??? Chronic cough with a large amount of thick mucus. Sometimes the cough may not have any mucus (dry cough). ??? Wheezing. ??? Rapid breaths. ??? Hernandez or bluish discoloration (cyanosis) of the skin, especially in your fingers, toes, or lips. ??? Feeling tired (fatigue). ??? Weight loss. ??? Chest tightness. ??? Frequent infections. ??? Episodes when breathing symptoms become much worse (exacerbations). ??? Swelling in the ankles, feet, or legs. This may occur in later stages of the disease. How is this diagnosed? This condition is diagnosed based on: ??? Your medical history. ??? A physical exam. You may also have tests, including: ??? Lung (pulmonary) function tests. This may include a spirometry test, which measures your ability to exhale properly. ??? Chest X-ray. ??? CT scan. ??? Blood tests. How is this treated? This condition may be treated with: ??? Medicines. These may include inhaled rescue medicines to treat acute exacerbations as well as long-term, or maintenance, medicines to prevent flare-ups of COPD. ? Bronchodilators help treat COPD by dilating the airways to allow increased airflow and make your breathing more comfortable. ? Steroids can reduce airway inflammation and help prevent exacerbations. ??? Smoking cessation. If you smoke, your health care provider may ask you to quit, and may also recommend therapy or replacement products to help you quit. ??? Pulmonary rehabilitation. This may involve working with a team of health care providers and specialists, such as respiratory, occupational, and physical therapists. ??? Exercise and physical activity. These are beneficial for nearly all people with COPD. ??? Nutrition therapy to gain weight, if you are underweight. ??? Oxygen. Supplemental oxygen therapy is only helpful if you have a low oxygen level in your blood (hypoxemia). ??? Lung surgery or transplant. ??? Palliative care. This is to help people with COPD feel comfortable when treatment is no longer working. Follow these instructions at home: Medicines ??? Take qqxm-wxz-cxqjkpn and prescription medicines (inhaled or pills) only as told by your health care provider. ??? Talk to your health care provider before taking any cough or allergy medicines. You may need to avoid certain medicines that dry out your airways. Lifestyle ??? If you are a smoker, the most important thing that you can do is to stop smoking. Do not use any products that contain nicotine or tobacco, such as cigarettes and e-cigarettes. If you need help quitting, ask your health care provider. Continuing to smoke will cause the disease to progress faster. ??? Avoid exposure to things that irritate your lungs, such as smoke, chemicals, and fumes. ??? Stay active, but balance activity with periods of rest. Exercise and physical activity will help you maintain your ability to do things you want to do. ??? Learn and use relaxation techniques to manage stress and to control your breathing. ??? Get the right amount of sleep and get quality sleep. Most adults need 7 or more hours per night. ??? Eat healthy foods. Eating smaller, more frequent meals and resting before meals may help you maintain your strength. Controlled breathing Learn and use controlled breathing techniques as directed by your health care provider. Controlled breathing techniques include: ??? Pursed lip breathing. Start by breathing in (inhaling) through your nose for 1 second. Then, purse your lips as if you were going to whistle and breathe out (exhale) through the pursed lips for 2 seconds. ??? Diaphragmatic breathing. Start by putting one hand on your abdomen just above your waist. Inhale slowly through your nose. The hand on your abdomen should move out. Then purse your lips and exhale slowly. You should be able to feel the hand on your abdomen moving in as you exhale. Controlled coughing Learn and use controlled coughing to clear mucus from your lungs. Controlled coughing is a series of short, progressive coughs. The steps of controlled coughing are: 1. Lean your head slightly forward. 2. Breathe in deeply using diaphragmatic breathing. 3. Try to hold your breath for 3 seconds. 4. Keep your mouth slightly open while coughing twice. 5. Spit any mucus out into a tissue. 6. Rest and repeat the steps once or twice as needed. General instructions ??? Make sure you receive all the vaccines that your health care provider recommends, especially the pneumococcal and influenza vaccines. Preventing infection and hospitalization is very important when you have COPD. ??? Use oxygen therapy and pulmonary rehabilitation if directed to by your health care provider. If you require home oxygen therapy, ask your health care provider whether you should purchase a pulse oximeter to measure your oxygen level at home. ??? Work with your health care provider to develop a COPD action plan. This will help you know what steps to take if your condition gets worse. ??? Keep other chronic health conditions under control as told by your health care provider. ??? Avoid extreme temperature and humidity changes. ??? Avoid contact with people who have an illness that spreads from person to person (is contagious), such as viral infections or pneumonia. ??? Keep all follow-up visits as told by your health care provider. This is important. Contact a health care provider if: ??? You are coughing up more mucus than usual. ??? There is a change in the color or thickness of your mucus. ??? Your breathing is more labored than usual. ??? Your breathing is faster than usual. ??? You have difficulty sleeping. ??? You need to use your rescue medicines or inhalers more often than expected. ??? You have trouble doing routine activities such as getting dressed or walking around the house. Get help right away if: ??? You have shortness of breath while you are resting. ??? You have shortness of breath that prevents you from: ? Being able to talk. ? Performing your usual physical activities. ??? You have chest pain lasting longer than 5 minutes. ??? Your skin color is more blue (cyanotic) than usual. ??? You measure low oxygen saturations for longer than 5 minutes with a pulse oximeter. ??? You have a fever. ??? You feel too tired to breathe normally. Summary ??? Chronic obstructive pulmonary disease (COPD) is a long-term (chronic) condition that affects the lungs. ??? Your lung function will probably never return to normal. In most cases, it gets worse over time. However, there are steps you can take to slow the progression of the disease and improve your quality of life. ??? Treatment for COPD may include taking medicines, quitting smoking, pulmonary rehabilitation, and changes to diet and exercise. As the disease progresses, you may need oxygen therapy, a lung transplant, or palliative care. ??? To help manage your condition, do not smoke, avoid exposure to things that irritate your lungs, stay up to date on all vaccines, and follow your health care provider's instructions for taking medicines. This information is not intended to replace advice given to you by your health care provider. Make sure you discuss any questions you have with your health care provider. Document Released: 12/29/2005 Document Revised: 09/14/2017 Document Reviewed: 04/25/2017 [employer] Interactive Patient Education ?? 2020 [employer] Pulmonary Nodule A pulmonary nodule is a small, round growth of tissue in the lung. It is sometimes referred to as a shadow or spot on the lung. Nodules range in size from less than 1/5 of an inch (4 mm) to a little bigger than an inch (30 mm). Pulmonary nodules can be either noncancerous (benign) or cancerous (malignant). Most are noncancerous. Smaller nodules in people who do not smoke and do not have any other risk factors for lung cancer are more likely to be noncancerous. Larger, irregular nodules in people who smoke or who have a strong family history of lung cancer are more likely to be cancerous. What are the causes? This condition may be caused by: ??? A bacterial, fungal, or viral infection, such as tuberculosis. The infection is usually an old and inactive one. ??? A noncancerous mass of tissue. ??? Inflammation from conditions such as rheumatoid arthritis. ??? Abnormal blood vessels in the lungs. ??? Cancerous tissue, such as lung cancer or a cancer in another part of the body that has spread to the lung. What are the signs or symptoms? This condition usually does not cause symptoms. If symptoms appear, they are usually related to the underlying cause. For example, if the condition is caused by an infection, you may have a cough or fever. How is this diagnosed? This condition is usually diagnosed with an X-ray or CT scan. To help determine whether a pulmonary nodule is benign or malignant, your health care provider will: ??? Take your medical history. ??? Perform a physical exam. ??? Order tests, including: ? Blood tests. ? A skin test called a tuberculin test. This test is done to check if you have been exposed to the germ that causes tuberculosis. ? Chest X-rays. ? A CT scan. This test shows smaller pulmonary nodules more clearly and with more detail than an X-ray. ? A positron emission tomography (PET) scan. This test is done to check if the nodule is cancerous. During the test, a safe amount of a radioactive substance is injected into the bloodstream. Then a picture is taken. ? Biopsy. In this test, a tiny piece of the pulmonary nodule is removed and then examined under a microscope. How is this treated? Treatment for this condition depends on whether the pulmonary nodule is malignant or benign as well as your risk of getting cancer. ??? Noncancerous nodules usually do not need to be treated, but they may need to be monitored with CT scans. If a CT scan shows that the pulmonary nodule got bigger, more tests may be done. ??? Some nodules need to be removed. If this is the case, you may have a procedure called a thoractomy. During the procedure, your health care provider will make an incision in your chest and remove the part of the lung where the nodule is located. Follow these instructions at home: ??? Take gcbj-abm-saqrsxp and prescription medicines only as told by your health care provider. ??? Do not use any products that contain nicotine or tobacco, such as cigarettes and e-cigarettes. If you need help quitting, ask your health care provider. ??? Keep all follow-up visits as told by your health care provider. This is important. Contact a health care provider if: ??? You have trouble breathing when you are active. ??? You feel sick or unusually tired. ??? You do not feel like eating. ??? You lose weight without trying. ??? You develop chills or night sweats. Get help right away if: ??? You cannot catch your breath. ??? You begin wheezing. ??? You cannot stop coughing. ??? You cough up blood. ??? You become dizzy or feel like you are going to faint. ??? You have sudden chest pain. ??? You have a fever or persistent symptoms for more than 2???3 days. ??? You have a fever and your symptoms suddenly get worse. Summary ??? A pulmonary nodule is a small, round growth of tissue in the lung. Most pulmonary nodules are noncancerous. ??? This condition is usually diagnosed with an X-ray or CT scan. ??? Common causes of pulmonary nodules include infection, inflammation, and noncancerous growths. ??? Though less common, if a nodule is found to be cancerous, you will need specific diagnostic tests and treatment options as directed by your medical provider. ??? Treatment for this condition depends on whether the pulmonary nodule is benign or malignant as well as your risk of getting cancer. This information is not intended to replace advice given to you by your health care provider. Make sure you discuss any questions you have with your health care provider. Document Released: 01/16/2010 Document Revised: 04/19/2017 Document Reviewed: 04/19/2017 [employer] Interactive Patient Education ?? 2020 [employer]. Nonspecific Chest Pain, Adult Chest pain can be caused by many different conditions. It can be caused by a condition that is life-threatening and requires treatment right away. It can also be caused by something that is not life-threatening. If you have chest pain, it can be hard to know the difference, so it is important to get help right away to make sure that you do not have a serious condition. Some life-threatening causes of chest pain include: ??? Heart attack. ??? A tear in the body's main blood vessel (aortic dissection). ??? Inflammation around your heart (pericarditis). ??? A problem in the lungs, such as a blood clot (pulmonary embolism) or a collapsed lung (pneumothorax). Some non life-threatening causes of chest pain include: ??? Heartburn. ??? Anxiety or stress. ??? Damage to the bones, muscles, and cartilage that make up your chest wall. ??? Pneumonia or bronchitis. ??? Shingles infection (varicella-zoster virus). Chest pain can feel like: ??? Pain or discomfort on the surface of your chest or deep in your chest. ??? Crushing, pressure, aching, or squeezing pain. ??? Burning or tingling. ??? Dull or sharp pain that is worse when you move, cough, or take a deep breath. ??? Pain or discomfort that is also felt in your back, neck, jaw, shoulder, or arm, or pain that spreads to any of these areas. Your chest pain may come and go. It may also be constant. Your health care provider will do lab tests and other studies to find the cause of your pain. Treatment will depend on the cause of your chest pain. Follow these instructions at home: Medicines ??? Take igry-big-yklznvg and prescription medicines only as told by your health care provider. ??? If you were prescribed an antibiotic, take it as told by your health care provider. Do not stop taking the antibiotic even if you start to feel better. Lifestyle ??? Rest as directed by your health care provider. ??? Do not use any products that contain nicotine or tobacco, such as cigarettes and e-cigarettes. If you need help quitting, ask your health care provider. ??? Do not drink alcohol. ??? Make healthy lifestyle choices as recommended. These may include: ? Getting regular exercise. Ask your health care provider to suggest some activities that are safe for you. ? Eating a heart-healthy diet. This includes plenty of fresh fruits and vegetables, whole grains, low-fat (lean) protein, and low-fat dairy products. A dietitian can help you find healthy eating options. ? Maintaining a healthy weight. ? Managing any other health conditions you have, such as high blood pressure (hypertension) or diabetes. ? Reducing stress, such as with yoga or relaxation techniques. General instructions ??? Pay attention to any changes in your symptoms. Tell your health care provider about them or any new symptoms. ??? Avoid any activities that cause chest pain. ??? Keep all follow-up visits as told by your health care provider. This is important. This includes visits for any further testing if your chest pain does not go away. Contact a health care provider if: ??? Your chest pain does not go away. ??? You feel depressed. ??? You have a fever. Get help right away if: ??? Your chest pain gets worse. ??? You have a cough that gets worse, or you cough up blood. ??? You have severe pain in your abdomen. ??? You faint. ??? You have sudden, unexplained chest discomfort. ??? You have sudden, unexplained discomfort in your arms, back, neck, or jaw. ??? You have shortness of breath at any time. ??? You suddenly start to sweat, or your skin gets clammy. ??? You feel nausea or you vomit. ??? You suddenly feel lightheaded or dizzy. ??? You have severe weakness, or unexplained weakness or fatigue. ??? Your heart begins to beat quickly, or it feels like it is skipping beats. These symptoms may represent a serious problem that is an emergency. Do not wait to see if the symptoms will go away. Get medical help right away. Call your local emergency services (911 in the [place] Do not drive yourself to the hospital. Summary ??? Chest pain can be caused by a condition that is serious and requires urgent treatment. It may also be caused by something that is not life-threatening. ??? If you have chest pain, it is very important to see your health care provider. Your health care provider may do lab tests and other studies to find the cause of your pain. ??? Follow your health care provider's instructions on taking medicines, making lifestyle changes, and getting emergency treatment if symptoms become worse. ??? Keep all follow-up visits as told by your health care provider. This includes visits for any further testing if your chest pain does not go away. This information is not intended to replace advice given to you by your health care provider. Make sure you discuss any questions you have with your health care provider. Document Released: 12/29/2005 Document Revised: 02/06/2019 Document Reviewed: 09/21/2018 [employer] Patient Education ?? 2020 [employer]. Emergency Awareness and Preventative Care STROKE is an EMERGENCY Every Minute Counts Act FAST and Check for these signs: FACE Does the face look uneven? ARM Does one arm drift down? SPEECH Does their speech sound strange? TIME Call at any sign of stroke Stroke Risk Factors Atrial Fibrillation (irregular heartbeat) Diabetes Family history of stroke Heart Disease Heavy alcohol use High Blood Pressure High Cholesterol Physical inactivity and obesity Smoking Cigarette Smoking The facts are clear, cigarette smoking will shorten your life. Smoking can cause many illnesses along the way. As a healthcare provider, we recommend that you stop smoking. Assistance with quitting is available by contacting 8-874-OUMV-NOW. This is a free resource providing counseling, support, and referral. Or you may contact your personal physician. National Suicide Prevention Lifeline: The National Suicide Prevention Lifeline is a national network of local crisis centers that provides free and confidential emotional support to people in suicidal crisis or emotional distress 24 hours a day, 7 days a week. Don't Wait! Stop a Heart Attack Before it Starts What is a heart attack? A heart attack is damage or to a part of the heart from severely decreased or lack of blood flow to the heart. Over time, arteries can become narrow from the buildup of fat and cholesterol, which is called plaque. The plaque can rupture causing a blood clot to form. When the blood clot forms, the artery can become severely narrowed or completely blocked, causing a heart attack. Heart attack is the leading cause of in the [place]. 85% of muscle damage occurs within the first 2 hours. Delay in the recognition of heart attack symptoms increases the chances of . Know the early symptoms of a heart attack: Nausea Feeling of fullness in chest Jaw Pain Pain that travels down one or both arms Fatigue/being tired Anxiety Back Pain Chest pressure, squeezing, or discomfort Shortness of breath Sweating, or a cold sweat Feeling of impending doom There are unusual signs of a heart attack, too! Women, the elderly, and diabetics may present with atypical symptoms: Fainting/dizziness Weakness Confusion Risk Factors for a Heart Attack Some heart disease risk factors, such as age and family history, cannot be changed. Others, like smoking and lack of exercise, can be changed. Smoking High Cholesterol High Blood Pressure Family History Obesity Age Gender (Males are at higher risk) Lack of Exercise Diabetes Diet Stress Excessive Alcohol Intake If you or someone you know is experiencing the signs and symptoms of a heart attack, DON???T DELAY. Call immediately and seek help. If someone collapses, perform CPR! Do not attempt to drive if you are having symptoms of heart attack. Hands-Only CPR Why Hands-Only CPR? Hands-Only CPR has been shown to be as effective as conventional CPR for cardiac arrests that occur outside of a hospital. Survival depends on immediately receiving CPR from someone nearby. How do you perform Hands-Only CPR? There are two easy steps: Call if you see a teen or adult collapse Push hard and fast in the center of the chest at a beat of 100 beats per minute. Save a life! 4 WAYS TO GET AHEAD OF SEPSIS SEPSIS is a MEDICAL EMERGENCY. Time matters! Infections put you and your family at risk for a life-threatening condition called sepsis. Sepsis is the body's extreme response to an infection. It is life-threatening, and without timely treatment, sepsis can rapidly lead to tissue damage, organ failure, and . Sepsis happens when an infection you already have-in your skin, lungs, urinary tract or somewhere else-triggers a chain reaction throughout your body. 1 PREVENT INFECTIONS Take good care of chronic conditions. Talk to your doctor about getting the recommended vaccines. 2 PRACTICE GOOD HYGIENE Wash your hands frequently. Keep cuts or open sores clean and covered until they are healed. 3 KNOW THE SYMPTOMS Confusion or disorientation Shortness of breath High heart rate Fever, shivering, or feeling very cold Extreme pain or discomfort Clammy or sweaty skin 4 ACT FAST Get medical care IMMEDIATELY if you suspect sepsis or if you have an infection that is not getting better or is getting worse. To learn more about sepsis and how to prevent infections, visit www.cdc.gov/sepsis. The examination and treatment you have received in the Emergency Department has been done to provide an appropriate evaluation and stabilizing treatment on an emergency basis only. Given the limited resources, it is not meant to be a substitute for complete medical care. The follow-up doctor you named will receive a copy of your records and all test reports. IT IS IMPORTANT THAT YOU SCHEDULE A FOLLOW-UP APPOINTMENT AND ARE RE-EVALUATED. You should report any new complaints, symptoms, or remaining problems at that time. IT IS IMPOSSIBLE FOR THE EMERGENCY DEPARTMENT TO RECOGNIZE AND TREAT ALL ELEMENTS OF INJURY OR ILLNESS IN A SINGLE VISIT. If you have been referred to a specialist physician, it means that we believe you may have a condition that requires the expertise of a specialist. These physicians work in partnership with the hospital and have agreed to see referred patients in their office for further evaluation. KEEP IN MIND THAT THE SPECIALIST HAS HIS/HER OWN OFFICE POLICIES WHICH MAY REQUIRE PROPER INSURANCE OR PAYMENT UP FRONT BEFORE THE SPECIALIST WILL SEE YOU. It is your responsibility to call the specialist physician to make an appointment. We do not have the ability to refer patients to specialists/physicians that work with specific insurance companies. Please be advised that all financial charges or billing practices are determined by that practice, not the hospital. If your insurance company requires that you see a specialist from their approved list, it is your responsibility to contact your insurance company to make those arrangements. It is also your responsibility to follow any other requirements of your insurance company necessary to obtain coverage for claims submitted. We will bill your insurance; however, you are responsible today for any co-pay amounts. You will receive a separate bill for any services you may have received including: emergency, radiology, or pathology physicians. Patient Name:BLAZE IRWIN I have received this information and was given the opportunity to ask questions. Patient/[employer] Clerk Name: Patient/[employer] Clerk Signature: Relationship to Patient: Clinician/Hospital [employer] Clerk Signature: Please Provide a Telephone Number Where You Can Be Reached: Is it Permissible To Leave a Message? Date: documented in this encounter Plan of Treatment Not on file documented as of this encounter Visit Diagnoses Not on filedocumented in this encounter
--- OUTSIDE RECORDS SUMMARY | 2024-11-14 12:14 | XMS_ITS | Encounter Summary ---
Author Organization [employer] ([place], [place], [place], [place]) Address [address] [place] [address] Care Team Providers Care System Analyst Name Role Phone Unavailable Primary Care Provider Unavailabl e Encounter Details Date Type Department Care Team (Late st Contact Info) Description 09/10/2019 Transcribed Document [facility] [place] Family Medicine [address] [place] [address] ProviderGraciela MD [address] [place] [id number] Social History Tobacco Use Types Packs/Day Years Used Date Smoking Tobacco: Never Assessed Sex and Gender Information Value Date Recorded Sex Assigned at Not on file Legal Sex Male 7:01 PM CDT Gender Identity Not on file Sexual Orientation Not on file documented as of this encounter Miscellaneous Notes * Cerner Conversion Note - Graciela ProviderMD - 09/10/2019 3:46 PM CDT ED Discharge Entered On: 09/10/2019 15:46 EDT Performed On: 09/10/2019 15:46 EDT by Suhbham Mitchell, sleep lab technician Discharge Process Patient Disposition : Discharge Personal Belongings With Patient : Yes Patient Education Completed : Yes Teaching Evaluation : Verbalizes understanding IV Discontinued : No Nursing Documentation Completed : Yes Shubham Mitchell, sleep lab technician - 09/10/2019 15:46 EDT ED Discharge Discharge To : Home with ambulatory/outpatient follow-up Mode Of Departure : Ambulatory Accompanied By : Unaccompanied Discharge Instructions Reviewed With, Opportunity For Questions Given : Patient Prescriptions Given to Patient : Yes Number of Prescriptions Given : 3 Shubham Mitchell, sleep lab technician - 09/10/2019 15:46 EDT documented in this encounter Plan of Treatment Not on file documented as of this encounter Visit Diagnoses Not on filedocumented in this encounter
--- OUTSIDE RECORDS SUMMARY | 2024-11-14 12:14 | XMS_ITS | Referral Summary ---
Author Organization [employer] ([place], [place], [place], [place]) Address [address] [place] [address] Care Team Providers Care Lode Miner Name Role Phone Unavailable Primary Care Provider Unavailabl e Social History Tobacco Use Types Packs/Day Years [...] Date Anton rded Speak language other than Romanian at home Not on file 06/21/2023 Want [...] on file Sexual Orientation Not on file Plan of Treatment Not on file Procedures Procedure Name Priority Date/Time Associated Diagnosis Comments CT LUNG SCREENING INITIAL Routine 07/12/2023 11:50 AM EDT Cigarette smoker from Last 3 Months or Most Recently Relevant to Health Maintenance Results * CT Lung Screening Initial (07/12/2023 [...] upper abdomen demonstrate nonobstructing right renal stones. Italia Honeycutt NP IM CT ORDERABLES Final Result from Last 3 Months or Most Recently Relevant to Health Maintenance Insurance MEDICARE PART B ONLY
--- OUTSIDE RECORDS SUMMARY | 2024-11-14 12:14 | XMS_ITS | Clinical Summary ---
Author Organization Healthcare Address [address] [id number] Care Team Providers Care Sign Artist Name Role Phone Juan Pablo Ann APRN Primary Care Provider [phone] Social History Tobacco Use Types Packs/Day Years Used Date Smoking Tobacco: Every Day Alcohol Use Standard Drinks/Week Comments No 0 (1 standard drink = 0.6 oz pur e alcohol) Sex and Gender Information Value Date Recorded Sex Assigned at Not on file Legal Sex Male 8:16 PM EDT Gender Identity Not on file Sexual Orientation Not on file Last Filed Vital Signs Vital Sign Reading Time Taken Comments Blood Pressure - - Pulse - - Temperature - - Respiratory Rate - - Oxygen Saturation - - Inhaled Oxygen Concentration - - Weight 68.5 kg (150 lb 15.9 oz) 015 10:05 AM EDT Height 180.3 cm (5' 11 ) 10/07/2014 10: 05 AM EDT Body Mass Index 21.06 10/07/2014 10:05 AM EDT Plan of Treatment Health Maintenance Due Date Last Done Comments [facility]-Depression Screening 1955 [facility]-/Child/Adol SDOH Screenings 1955 [facility]- SDOH Screenings 01/27/1974 [facility]-Adult SDOH Screenings 01/27/1974 [facility]-DTaP,Tdap,and Td Vaccine s (1 - Tdap) 01/27/1975 CT Colonography 01/27/2001 FIT-DNA 01/27/2001 FIT 01/27/2001 FOBT 01/27/2001 Sigmoidoscopy 01/27/2001 [facility]-Pneumococcal Vaccine: 50 + Years (1 of 1 - PCV) 01/27/2006 [facility]-Zoster Vaccines (1 of 2) 01/27/2006 Colonoscopy 01/10/2023 01/10/2013 [facility]-Colorectal Cancer Screening 01/10/2023 [id number] Vaccine (1 - 20 24-25 season) 2023 [facility]-Influenza Vaccine (#1) 2024 [facility]-RSV Vaccine: 60+ Years o r (1 - 1-dose 75+ series) 01/27/2031 HPV Vaccines Aged Out No longer eligi ble based on patient's age to complete this topic [facility]-HIB Vaccines Aged Out No longer e ligible based on patient's age to complete this topic [facility]-Hepatitis A Vaccines Aged Out No longer eligible based on patient's age to complete this topic [facility]-IPV Vaccines Aged Out No longer e ligible based on patient's age to complete this topic [facility]-Rotavirus Vaccines Aged Out No lo nger eligible based on patient's age to complete this topic Procedures Procedure Name Priority Date/Time Associated Diagnosis Comments COLONOSCOPY 01/10/2013 from Last 3 Months or Most Recently Relevant to Health Maintenance Results * COLONOSCOPY (01/10/2013) Anatomical Region Laterality Modality Endoscopy Narrative 01/10/2013 Ordered by an unspecified provider. us Historical Provider GI PROCEDURE ORDERABLES F inal Result from Last 3 Months or Most Recently Relevant to Health Maintenance Care Teams Sign Artist Relationship Specialty Start Date End Date Juan Pablo Ann APRN [address] [place] [address] PCP - General 08/15/20
--- OUTSIDE RECORDS SUMMARY | 2024-11-14 12:14 | XMS_ITS | Encounter Summary ---
Author Organization [employer] ([place], [place], [place], [place]) Address [address] [place] [address] Care Team Providers Care Fund Accountant Name Role Phone Unavailable Primary Care Provider Unavailabl e Encounter Details Date Type Department Care Team (Late st Contact Info) Description 09/10/2019 Transcribed Document [facility] [place] [address] [place] [address] ProviderGraciela MD [address] [place] [id number] Social History Tobacco Use Types Packs/Day Years Used Date Smoking Tobacco: Never Assessed Sex and Gender Information Value Date Recorded Sex Assigned at Not on file Legal Sex Male 7:01 PM CDT Gender Identity Not on file Sexual Orientation Not on file documented as of this encounter Miscellaneous Notes * Cerner Conversion Note - Historical ProviderMD - 09/10/2019 6:31 PM CDT CR Chest 1 Vw Portable Ordered: 09/10/2019 Modified Reason for Exam: pain 09/10/2019 11:38 09/10/2019 18:31 (ANJEL RASMUSSEN PA-C) Reviewed by Provider, No further action required X1 09/10/2019 16:09 (KEY ALEMAN) Provider Review Required documented in this encounter Plan of Treatment Not on file documented as of this encounter Visit Diagnoses Not on filedocumented in this encounter
--- OUTSIDE RECORDS SUMMARY | 2024-11-14 12:14 | XMS_ITS | Encounter Summary ---
Author Organization [employer] ([place], [place], [place], [place]) Address [address] [place] [address] Care Team Providers Care Nurse School Name Role Phone Unavailable Primary Care Provider Unavailabl e Encounter Details Date Type Department Care Team (Late st Contact Info) Description 09/10/2019 Transcribed Document [facility] [place] [facility] [place] [address] ProviderGraciela MD [address] [place] [phone] Social History Tobacco Use Types Packs/Day Years Used Date Smoking Tobacco: Never Assessed Sex and Gender Information Value Date Recorded Sex Assigned at Not on file Legal Sex Male 7:01 PM CDT Gender Identity Not on file Sexual Orientation Not on file documented as of this encounter Miscellaneous Notes * Cerner Conversion Note - Graciela ProviderMD - 09/10/2019 10:18 AM CDT [place] Suicide Severity Rating Scale (C-SSRS) Entered On: 09/10/2019 11:10 EDT Performed On: 09/10/2019 10:15 EDT by Caryn Ramachandran RN [place] Suicide Severity Rating Scale (C-SSRS) CSSRS Past Month Wish to be : No CSSRS Past Month Suicidal Thoughts : No CSSRS Lifetime Suicide Behavior : No Suicide Severity Rating Score : 0 Suicide Severity Rating : No Additional Care Required at this time Caryn Ramachandran RN - 09/10/2019 11:08 EDT documented in this encounter Plan of Treatment Not on file documented as of this encounter Visit Diagnoses Not on filedocumented in this encounter
--- OUTSIDE RECORDS SUMMARY | 2024-11-14 12:14 | XMS_ITS | Encounter Summary ---
Author Organization [employer] ([place], [place], [place], [place]) Address [address] [place] [address] Care Team Providers Care Chemical Research Technician Name Role Phone Unavailable Primary Care Provider Unavailabl e Encounter Details Date Type Department Care Team (Late st Contact Info) Description 09/10/2019 Transcribed Document [facility] [place] [address] [place] [address] ProviderGraciela MD [address] [place] [id number] Social History Tobacco Use Types Packs/Day Years Used Date Smoking Tobacco: Never Assessed Sex and Gender Information Value Date Recorded Sex Assigned at Not on file Legal Sex Male 7:01 PM CDT Gender Identity Not on file Sexual Orientation Not on file documented as of this encounter Miscellaneous Notes * Cerner Conversion Note - Graciela Reddy MD - 09/10/2019 10:37 AM CDT Patient: BLAZE IRWIN Age: 64 years Sex: Male : 1955 Associated Diagnoses: Chest pain; Shortness of breath; Lung nodule/lymphnode Author: ANJEL RASMUSSEN PA-C Basic Information Time seen: Date & time 09/10/2019 10:25:00. History source: Patient. Arrival mode: Private vehicle. History limitation: None. Additional information: Chief Complaint from Nursing Triage Note : Chief Complaint 09/10/2019 10:24 EDT Chief Complaint Pt states he leaned over a car a few weeks ago and has had left side chest/lung pain since then. Pt denies cardiac hx but reports COPD . History of Present Illness The patient presents with chest pain. The onset was 4 weeks ago. The course/duration of symptoms is constant. Location: Left chest. Radiating pain: none. The character of symptoms is sharp. The degree at onset was moderate. The degree at maximum was moderate. The degree at present is moderate. There are exacerbating factors including movement, breathing and palpation. The relieving factor is none. Risk factors consist of smoking. Prior episodes: none. Therapy today None. Associated symptoms: shortness of breath, denies nausea, denies vomiting, denies diaphoresis, denies anxiety and denies palpitations. Additional history: He felt like he bruised a rib on left side a month ago leaning on car changing spark plugs. Pain has been constant. He feels more soa than usual. He has chronic cough with COPD. Reports no fever. He has not seen a doctor in 3 years and no home meds.. Review of Systems Constitutional symptoms: Negative except as documented in HPI. Skin symptoms: Negative except as documented in HPI. Eye symptoms: Negative except as documented in HPI. ENMT symptoms: Negative except as documented in HPI. Respiratory symptoms: Shortness of breath, cough. Cardiovascular symptoms: Chest pain. Gastrointestinal symptoms: Negative except as documented in HPI. Genitourinary symptoms: Negative except as documented in HPI. Musculoskeletal symptoms: Negative except as documented in HPI. Neurologic symptoms: Negative except as documented in HPI. Psychiatric symptoms: Negative except as documented in HPI. Endocrine symptoms: Negative except as documented in HPI. Hematologic/Lymphatic symptoms: Negative except as documented in HPI. Allergy/immunologic symptoms: Negative except as documented in HPI. Additional review of systems information: All other systems reviewed and otherwise negative. Health Status Allergies: Allergic Reactions (Selected) No Known Allergies. Past Medical/ Family/ Social History Medical history Respiratory: chronic obstructive pulmonary disease. Surgical history: No active procedure history items have been selected or recorded.. Family history: No family history items have been selected or recorded.. Social history: Social & Psychosocial Habits Home/Environment 09/10/2019 Living situation: Home/Independent Tobacco 09/10/2019 Smoking Status 10 or more cigarettes (1/ . Problem list: No qualifying data available . Physical Examination Vital Signs Vital Signs/Vital Measures 09/10/2019 10:24 EDT Blood Pressure Location Arm, left upper Blood Pressure Source Non-Invasive BP Device Systolic Blood Pressure 135 mmHg Diastolic Blood Pressure 76 mmHg Temperature Source Oral Temperature Mode Fahrenheit Temperature, Fahrenheit 98.1 Deg F Clinical Temperature, C 36.7 Deg C Peripheral Pulse Rate 101 bpm HI Respiratory Rate 16 Breaths/Min Oxygen Saturation 96 % Oxygen Therapy Mode Room air . Measurements 09/10/2019 10:24 EDT Height Source Stated Height Entry Format Daniels Height/Length, YAKUT (ft) 5 ft Height/Length YAKUT 11 Inch CLINICALHEIGHT 180.34 cm [place] Body Weight 74.31 kg Weight Source, ED Standing scale Weight Entry Format Daniels Weight Kyrgyz lb 124 lb Weight Kyrgyz oz 5 oz CLINICALWEIGHT 56.51 kg Body Surface Area (BSA) 1.72 m2 Body Mass Index 17.4 kg/m2 <LLOW . Oxygen Saturation 09/10/2019 10:24 EDT Oxygen Saturation 96 % . General: Alert, no acute distress. Skin: Warm, dry, pink. Head: Normocephalic. Neck: Supple. Eye: Normal conjunctiva. Ears, nose, mouth and throat: Oral mucosa moist. Cardiovascular: Regular rate and rhythm, No murmur, Normal peripheral perfusion, No edema. Respiratory: Lungs are clear to auscultation, respirations are non-labored, breath sounds are equal. Chest wall: No deformity, left anterior lower chest wall tenderness. . Back: Nontender, Normal range of motion, Normal alignment. Musculoskeletal: Normal ROM, normal strength, no tenderness, no swelling. Gastrointestinal: Soft, Nontender, Non distended. Neurological: Alert and oriented to person, place, time, and situation, normal motor observed, normal speech observed, normal coordination observed. Psychiatric: Cooperative, appropriate mood & affect, normal judgment. Medical Decision Making Documents reviewed: Emergency department nurses' notes. Orders Include Previous Orders (Selected) Inpatient Orders Ordered Cardiac Monitoring: ED Adult Fall Risk Assessment: ED C-SSRS: ED Clinical Reconciliation: ED farm equipment assembler: EKG: Pulse Oximetry Continuous Monitoring: Saline Lock Insert: aspirin: 324 mg, Chew, 1-Time Ordered (Dispatched) CBC w/ Auto Diff: Extra Blue Tube: Lactic Acid Level with Reflex if Indicated: ProBNP: Troponin I Ultra: Ordered (Exam Ordered) CR Chest 1 Vw Portable: Completed ED Adult Triage: . Electrocardiogram: Time 09/10/2019 10:29:00, rate 84, normal sinus rhythm, No ST changes, no ectopy, normal NC & QRS intervals, EP Interp. pvc monitor: Normal sinus rhythm. Results review: All Results 09/10/2019 10:46 EDT Sodium Level 137 mmol/L Potassium Level 4.0 mmol/L Chloride Level 105 mmol/L Carbon Dioxide Level 28 mmol/L Anion Gap 8 LOW Glucose Level 109 mg/dL HI Blood Urea Nitrogen 18 mg/dL Creatinine Level 1.10 mg/dL eGFR >60 mL/min/1.73m2 eGFR NonAfrican >60 mL/min/1.73m2 Bun/Creatinine 16.4 Calcium Level 8.5 mg/dL Protein Total 7.8 Gram/dL Albumin Level 3.9 Gram/dL Globulin 3.9 Gram/dL A/G Ratio 1.0 LOW Bilirubin Total 0.3 mg/dL Alk Phos 78 Units/Liter AST 36 Units/Liter ALT 16 Units/Liter 09/10/2019 10:33 EDT Lactic Acid Level 1.1 mmol/L Troponin I Ultra <0.015 ng/mL ProBNP 47 pg/mL WBC 6.4 K/uL RBC 4.12 Million/uL LOW Hgb 13.1 g/dL LOW Hct 38.8 % LOW MCV 94.2 fL MCH 31.8 pg MCHC 33.8 Gram/dL Platelet Count 159 K/uL LOW MPV 12.9 fL HI RDW 12.5 % Neut % 58.5 % Neut # 3.72 K/uL Lymph % 28.1 % Lymph # 1.79 x10(3)/uL [facility] % 7.8 % [place] # 0.50 K/uL Eos % 4.2 % Eos # 0.27 x10(3)/uL Baso % 0.9 % Baso # 0.06 x10(3)/uL Slide Review No IG# 0.03 x10(3)/uL IG% 0.50 % . Radiology results: Radiology Results (Last 48 hours) [id number] -- 09/10/2019 10:17 CR Chest 1 Vw Portable (09/10/2019 10:41) Result: PORTABLE CHESTINDICATION: Shortness of breath. Right-sided sharp chest pain for 2weeks. History of COPD.FINDINGS: Single frontal portable chest without comparison. EKG leadsoverlie the chest. Heart size is normal. The lungs are hyperinflated.Scattered calcifications, likely due to old granulomatous disease.Coarsened interstitial opacities are favored to be chronic. No distinctconsolidation or effusion. Degenerative changes in the spine andshoulders.IMPRESSION: Chronic appearing findings. Followup PA and lateral viewswould be helpful for a more complete evaluation.Images reviewed, interpreted, and dictated by Peterson Shannon MD CTA Chest PE Protocol (09/10/2019 12:43) Result: CT ANGIOGRAPHY OF THE CHEST: PE PROTOCOLHISTORY: Left side chest pain with inspiration for one month.TECHNIQUE: Thin-section axial images through the chest were performedfollowing the administration of intravenous contrast. Coronal oblique 3DMIP images were performed and reviewed. This study was performed withtechniques to keep radiation doses as low as reasonably achievable,(ALARA). Individualized dose reduction techniques using automatedexposure control or adjustment of mA and/or kV according to the patientsize were employed.COMPARISON: NoneFINDINGS:The thoracic inlet is unremarkable. The aortic contours are normal. Thepulmonary arteries are well enhanced. There is no pulmonary embolism.There are no pleural or pericardial effusions. The heart is normal insize. There is no adenopathy. There is moderate centrilobular emphysema.Large apical blebs are noted. There is a tiny oval nodule along the leftmajor fissure measuring 5 mm. This is seen on image 34 series 4. Thislikely represents a small intrafissural lymph node. There is no edema orinfiltrate. The limited imaging of the upper abdomen demonstratesmoderate constipation. There is multilevel disc space narrowing of thethoracic spine. There is respiratory motion artifact. However, there isno acute displaced rib fracture identified.IMPRESSION:1. No pulmonary embolism.2. Moderate to severe emphysema. There is no edema or infiltrate.3. Tiny oval nodule along the left major fissure measuring 5 mm. Thislikely represents an intrafissural lymph node.Images reviewed, interpreted, and dictated by Jose Smith MD . Reexamination/ Reevaluation Time: 09/10/2019 15:25:00 . Course: well controlled, Patient feels well. Comfortable going home and follow up with new PCP and Pulmonary.. Impression and Plan Diagnosis Chest pain - Discharge, Emergency medicine, Medical Shortness of breath - Discharge, Emergency medicine, Medical Lung nodule/lymphnode - Discharge, Emergency medicine, Medical Plan Condition: Stable. Disposition: Discharged Admit/Transfer/Discharge: Discharge (Order): Start: 09/10/2019 15:30 EDT, Discharge to: Home. Prescriptions: Prescription [facility]: predniSONE 20 mg oral tablet (Prescribe): See Instructions, 2 Tab Oral Daily x 3 days, 1 Tab Oral Daily x 3 days, 9 Tab, 0 Refill(s) Proventil 2.5 mg/3 mL (0.083%) inhalation solution (Prescribe): 3 mL, Nebulized Inhalation, Q6H, 25 Each, 0 Refill(s) ProAir HFA 90 mcg/inh inhalation aerosol (Prescribe): 2 Puff, Inhalation, Q6H, 1 Each, 0 Refill(s). Patient was given the following educational materials: Nonspecific Chest Pain, Adult, Pulmonary Nodule, Chronic Obstructive Pulmonary Disease. Follow up with: ; [facility] Within 3 to 5 days; [place] [facility] Within 3 to 5 days; [facility] Within 3 to 5 days Follow up Pulmonary and evaluate your COPD and christiano nodule. Follow up with Primary Care. Return to ER if symptoms worse or different.. Counseled: Patient, Regarding diagnosis, Regarding diagnostic results, Regarding treatment plan, Regarding prescription, Patient indicated understanding of instructions. Notes: I certify that the MLP/CLINIC PHYSICIAN performed the services as delegated. , Discussed with Dr. Michel and agrees with plan of care.. documented in this encounter Plan of Treatment Not on file documented as of this encounter Visit Diagnoses Not on filedocumented in this encounter
--- OUTSIDE RECORDS SUMMARY | 2024-11-14 12:14 | XMS_ITS | Clinical Summary ---
Author Organization [employer] ([place], [place], [place], [place]) Address [address] [place] [address] Care Team Providers Care Occupational Therapist Aide Name Role Phone Unavailable Primary Care Provider [...] Date Anton rded Speak language other than Icelandic at home Not on file 06/21/2023 Want [...] Orientation Not on file Plan of Treatment Health Maintenance Due Date Last Done Comments CT Colonography 1955 Colonoscopy 1955 Colorectal Cancer Screening 1955 FOBT/FIT 1955 Fit-DNA (Cologuard) 1955 Sigmoidoscopy 1955 Depression Screening (12+) 1968 Tobacco Cessation Counseling and Screening (12+) 1968 Hepatitis C Screening 01/27/1974 DTAP/TDAP/TD VACCINES (1 - Tdap) 01/27/1975 Pneumococcal 50+ years (1 of 1 - PCV) 01/27/2006 Shingles Vaccine (Zoster) (1 of 2) 01/27/2006 COVID-19 VACCINE (1 - season) 2023 Falls Risk Screening 04/04/2024 Lung cancer screening 07/11/2024 07/12/2023, 020 Influenza Vaccine (#1) 2024 Respiratory Syncytial Virus (RSV) Adult or (1 - 1-dose 75+ series) 01/27/2031 Procedures Procedure Name Priority Date/Time Associated Diagnosis [...] Honeycutt NP IMG CT ORDERABLES Final Result from Last 3 Months or Most Recently Relevant to Health Maintenance Insurance MEDICARE PART B ONLY
--- OUTSIDE RECORDS SUMMARY | 2024-11-14 12:14 | XMS_ITS | Encounter Summary ---
Author Organization [employer] ([place], [place], [place], [place]) Address [address] [place] [address] Care Team Providers Care Plant Taxonomy Teacher Name Role Phone Unavailable Primary Care Provider Unavailabl e Encounter Details Date Type Department Care Team (Late st Contact Info) Description 09/10/2019 Transcribed Document [facility] [place] [facility] [place] [address] ProviderGraciela MD [address] [place] [id number] Social History Tobacco Use Types Packs/Day Years Used Date Smoking Tobacco: Never Assessed Sex and Gender Information Value Date Recorded Sex Assigned at Not on file Legal Sex Male 7:01 PM CDT Gender Identity Not on file Sexual Orientation Not on file documented as of this encounter Miscellaneous Notes * Cerner Conversion Note - Graciela ProviderMD - 09/10/2019 10:18 AM CDT ED Triage Entered On: 09/10/2019 10:26 EDT Performed On: 09/10/2019 10:24 EDT by Sue Mcarthur RN ED Triage Across the Room Chief Complaint : Pt states he leaned over a car a few weeks ago and has had left side chest/lung pain since then. Pt denies cardiac hx but reports COPD Triage Date/Time : 09/10/2019 10:24 EDT Sue Mcarthur RN - 09/10/2019 10:24 EDT DCP GENERIC CODE Tracking Acuity : 3 - Urgent Tracking Group : [facility] ED Sue Mcarthur RN - 09/10/2019 10:24 EDT Mode of Arrival : Ambulatory Transported to ED by : Private vehicle To Room Via : Ambulate Accompanied By : Unaccompanied ED Vital Signs : Document Height & Weight : Document ED Allergies : Document ED Infection Control : No ED Reason for Visit : Document Tetanus Immunization : None received Hand Gluer And Slicer Needed : No Sue Mcarthur RN - 09/10/2019 10:24 EDT Infectious Disease History Has the patient ever been tested for COVID-19? : No, Patient stated COVID19 Screening : No Experiencing Infectious Disease Symptoms : No symptoms Physical contact outside [place] in the last 30 days : No Infectious Disease Symptoms Score : 0 Infectious Disease History : None Tuberculosis Symptoms : None Sue Mcarthur RN - 09/10/2019 10:24 EDT Vital Signs ED Temperature Source : Oral Temperature Mode : Fahrenheit Temperature, Fahrenheit : 98.1 Deg F Clinical Temperature, C : 36.7 Deg C Oxygen Therapy Mode : Room air Peripheral Pulse Rate : 101 bpm (HI) Respiratory Rate : 16 Breaths/Min Blood Pressure Location : Arm, left upper Blood Pressure Source : Non-Invasive BP Device Systolic Blood Pressure : 135 mmHg Diastolic Blood Pressure : 76 mmHg Oxygen Saturation : 96 % Sue Mcarthur RN - 09/10/2019 10:24 EDT Allergy (As Of: 09/10/2019 10:26:22 EDT) Allergies (Active) No Known Allergies Estimated Onset Date: Unspecified ; Created By: [email or web address]; Reaction Status: Active ; Category: Drug ; Substance: No Known Allergies ; Type: Allergy ; Updated By: [email or web address]_[email or web address] salazar; Reviewed Date: 09/10/2019 10:25 EDT Diagnosis Control ED (As Of: 09/10/2019 10:26:22 EDT) Diagnoses(Active) Chest pain Date: 09/10/2019 ; Diagnosis Type: Reason For Visit ; Confirmation: Complaint of ; Clinical Dx: Chest pain ; Classification: Medical ; Clinical Service: Emergency medicine ; Code: PNED ; Probability: 0 ; Diagnosis Code: [id number] ED Height and Weight Height Source : Stated Height Entry Format : [place] Height, Feet : 5 ft(Converted to: 152 cm, 60 Inch) Height, Inches : 11 Inch(Converted to: 0 ft 11 Inch, 27.94 cm) Clinical Height : 180.34 cm Weight Source, ED : Standing scale Weight Entry Format : [place] Weight, Pounds : 124 lb Weight, Ounces : 5 oz Clinical Dosing Weight : 56.51 kg Body Surface Area (BSA) : 1.72 m2 Body Mass Index : 17.4 kg/m2 (<LLOW) [place] Body Weight (IBW) : 74.31 kg Sue Mcarthur RN - 09/10/2019 10:24 EDT documented in this encounter Plan of Treatment Not on file documented as of this encounter Visit Diagnoses Not on filedocumented in this encounter
== END 2024-11-13 23:59 | disposition home or self-care (01) ==
LOC: LAB.DROPOF 11-14 12:11
PROVIDERS: PCP Nurse Practitioner Family; Visit Provider Nurse Practitioner Family
DX: I10 Essential (primary) hypertension (principal)
CPT/HCPCS: 80053; 80061; 84443; 85025

== ENCOUNTER 2024-11-23 12:28 | Outpatient (CLI) | payer MEDICARE, MEDICAID, SELFPAY ==
--- OUTSIDE RECORDS SUMMARY | 2024-11-23 12:31 | XMS_ITS | Encounter Summary ---
Author Organization [employer] ([place], [place], [place], [place]) Address [address] [place] [address] Care Team Providers Care Science Intern Name Role Phone Unavailable Primary Care Provider Unavailabl e Encounter Details Date Type Department Care Team (Late st Contact Info) Description 09/10/2019 Transcribed Document [facility] [place] [address] [place] [address] ProviderGraciela MD [address] [place] [address] Social History Tobacco Use Types Packs/Day Years Used Date Smoking Tobacco: Never Assessed Sex and Gender Information Value Date Recorded Sex Assigned at Not on file Legal Sex Male 7:01 PM CDT Gender Identity Not on file Sexual Orientation Not on file documented as of this encounter Miscellaneous Notes * Cerner Conversion Note - Graciela Reddy MD - 09/10/2019 3:31 PM CDT [place] [address] BLAZE IRWIN :1955 Visit Time:09/10/2019 [...] do next Follow-Up Appointments Follow Up with [facility] When Within 3 to 5 days Comments Follow up Pulmonary and evaluate your COPD and christiano nodule. Follow up with Primary Care. Return to ER if symptoms worse or different. Where: [address] [facility] [place] [address]- Business (1) Follow Up with [place] [facility] When Within 3 to 5 days Where: [address] [facility], [address] [place] [address]- Business (1) Follow Up with [facility] When Within 3 to 5 days Where: [address] [facility] [address] [place] [id number]- [facility] (1) Allergies No Known Allergies Immunizations This [...] range between ( 0.0 and 7.0 ) [place] #: 0.50 K/uL -- Normal range between ( 0.16 and 1.00 ) Eos #: 0.27 x10(3)/uL -- Normal range between ( 0.00 and 0.80 ) Geary %: 7.8 % -- Normal range between [...] these instructions at home: Medicines ??? Take gxxk-ncr-yfyilii and prescription medicines (inhaled or pills) only [...] 12/29/2005 Document Revised: 09/14/2017 Document Reviewed: 04/25/2017 [employer] Interactive Patient Education ?? 2020 [employer] Pulmonary Nodule A pulmonary nodule is [...] Follow these instructions at home: ??? Take mtkd-ril-uyghtht and prescription medicines only as told by [...] 01/16/2010 Document Revised: 04/19/2017 Document Reviewed: 04/19/2017 [employer] Interactive Patient Education ?? 2020 [email or web address]. Nonspecific Chest Pain, Adult Chest pain can [...] these instructions at home: Medicines ??? Take rmur-wsk-bdjrfry and prescription medicines only as told by [...] 12/29/2005 Document Revised: 02/06/2019 Document Reviewed: 09/21/2018 [employer] Interactive Patient Education ?? 2020 [email or web address]. Emergency Awareness and Preventative Care STROKE is [...] Assistance with quitting is available by contacting 3-619-SIGN-NOW. This is a free resource providing counseling, [...] was given the opportunity to ask questions. Patient/Stevedoring Supervisor Name: Patient/Stevedoring Supervisor Signature: Relationship to Patient: Clinician/Hospital Stevedoring Supervisor Signature: Please Provide a Telephone Number Where You Can Be Reached: Is it Permissible To Leave a Message? Date: documented in this encounter Plan of Treatment Not on file documented as of this encounter Visit Diagnoses Not on filedocumented in this encounter
--- OUTSIDE RECORDS SUMMARY | 2024-11-23 12:31 | XMS_ITS | Encounter Summary ---
Author Organization [employer] ([place], [place], [place], [place]) Address [address] [place] [address] Care Team Providers Care Health Education Director Name Role Phone Unavailable Primary Care Provider Unavailabl e Encounter Details Date Type Department Care Team (Late st Contact Info) Description 02/06/2020 Transcribed Document [facility] Pulm & Critical Care Medicine [address] [place] [address] [place] [id number] [place] [address] [place] [address] [address] [place], [place] [id number] Social History Tobacco Use Types Packs/Day Years [...] for oxygen supplementation therapy. Please correlate clinically. /[id number] Yanna Nettles MD NB/AQ / NB / MODL /[id number] documented in this encounter Plan of Treatment Not on file documented as of this encounter Visit Diagnoses Not on filedocumented in this encounter
--- OUTSIDE RECORDS SUMMARY | 2024-11-23 12:31 | XMS_ITS | Encounter Summary ---
Author Organization [employer] ([place], [place], [place], [place]) Address [address] [place] [address] Care Team Providers Care Airbrush Artist Name Role Phone Unavailable Primary Care Provider Unavailabl e Encounter Details Date Type Department Care Team (Late st Contact Info) Description 09/10/2019 Transcribed Document [facility] [place] [facility] [place] [address] ProviderGraciela MD [address] [place] [address] Social History Tobacco Use Types Packs/Day Years Used Date Smoking Tobacco: Never Assessed Sex and Gender Information Value Date Recorded Sex Assigned at Not on file Legal Sex Male 7:01 PM CDT Gender Identity Not on file Sexual Orientation Not on file documented as of this encounter Miscellaneous Notes * Cerner Conversion Note - Graciela ProviderMD - 09/10/2019 10:18 AM CDT [place] Suicide Severity Rating Scale (C-SSRS) Entered On: 09/10/2019 11:10 EDT Performed On: 09/10/2019 10:15 EDT by Caryn Ramachandran RN [place] Suicide Severity Rating Scale (C-SSRS) CSSRS Past [...]
--- OUTSIDE RECORDS SUMMARY | 2024-11-23 12:31 | XMS_ITS | Encounter Summary ---
Author Organization [employer] ([place], [place], [place], [place]) Address [address] [place] [address] Care Team Providers Care Lunch Cook Name Role Phone Unavailable Primary Care Provider Unavailabl e Encounter Details Date Type Department Care Team (Late st Contact Info) Description 09/10/2019 Transcribed Document [facility] [place] [address] [place] [address] ProviderGraciela MD [address] [place] [address] Social History Tobacco Use Types Packs/Day Years [...] EDT Performed On: 09/10/2019 15:46 EDT by Shubham Mitchell, tax intern Discharge Process Patient Disposition : Discharge Personal Belongings With Patient : Yes Patient Education Completed : Yes Teaching Evaluation : Verbalizes understanding IV Discontinued : No Nursing Documentation Completed : Yes Shubham Mitchell, tax intern - 09/10/2019 15:46 EDT ED Discharge Discharge To : Home with ambulatory/outpatient follow-up Mode Of Departure : Ambulatory Accompanied By : Unaccompanied Discharge Instructions Reviewed With, Opportunity For Questions Given : Patient Prescriptions Given to Patient : Yes Number of Prescriptions Given : 3 Shubham Mitchell, tax intern - 09/10/2019 15:46 EDT documented in this encounter Plan of Treatment Not on file documented as of this encounter Visit Diagnoses Not on filedocumented in this encounter
--- OUTSIDE RECORDS SUMMARY | 2024-11-23 12:31 | XMS_ITS | Encounter Summary ---
Author Organization [employer] ([place], [place], [place], [place]) Address [address] [place] [address] Care Team Providers Care Floor Coverer Name Role Phone Unavailable Primary Care Provider Unavailabl e Encounter Details Date Type Department Care Team (Late st Contact Info) Description 09/10/2019 Transcribed Document [place] [facility] [place] [address] ProviderGraciela MD [address] [place] [address] Social History Tobacco Use Types Packs/Day Years [...] : 3 - Urgent Tracking Group : [facility] ED Sue Mcarthur RN - 09/10/2019 10:24 EDT Mode of Arrival : Ambulatory Transported to ED by : Private vehicle To Room Via : Ambulate Accompanied By : Unaccompanied ED Vital Signs : Document Height & Weight : Document ED Allergies : Document ED Infection Control : No ED Reason for Visit : Document Tetanus Immunization : None received Paint Technician Needed : No Sue Mcarthur RN - [...] PNED ; Probability: 0 ; Diagnosis Code: [id number] ED Height and Weight Height Source : Stated Height Entry Format : [place] Height, Feet : 5 ft(Converted to: 152 cm, 60 Inch) Height, Inches : 11 Inch(Converted to: 0 ft 11 Inch, 27.94 cm) Clinical Height : 180.34 cm Weight Source, ED : Standing scale Weight Entry Format : [place] Weight, Pounds : 124 lb Weight, Ounces : 5 oz Clinical Dosing Weight : 56.51 kg Body Surface Area (BSA) : 1.72 m2 Body Mass Index : 17.4 kg/m2 (<LLOW) [place] Body Weight (IBW) : 74.31 kg Sue Mcarthur RN - 09/10/2019 10:24 EDT Electronically signed by Redd Merino Conversion Digital Field Service Technician Cerner at 07/23/2022 10:18 AM CDT documented in this encounter Plan of Treatment Not on file documented as of this encounter Visit Diagnoses Not on filedocumented in this encounter
--- OUTSIDE RECORDS SUMMARY | 2024-11-23 12:31 | XMS_ITS | Encounter Summary ---
Author Organization [employer] ([place], [place], [place], [place]) Address [address] [place] [address] Care Team Providers Care Coconut Candy Maker Name Role Phone Unavailable Primary Care Provider Unavailabl e Encounter Details Date Type Department Care Team (Late st Contact Info) Description 09/10/2019 Transcribed Document [facility] [place] [address] ProviderGraciela MD [address] [place] [address] Social History Tobacco Use Types Packs/Day Years [...] On: 09/10/2019 10:15 EDT by Caryn Ramachandran, ADULT DAY CARE WORKER Quick Look Assessment Level of Consciousness : Alert, Awake Affect/Behavior : Appropriate, Calm, Cooperative Orientation : Oriented x 4 Skin Temperature : Warm Skin Description : Normal for ethnicity Caryn Ramachandran RN - 09/10/2019 11:08 EDT ED General-Functional Assess Information Obtained From : Patient Preferred Communication Mode : Verbal Communication Barrier : None Primary Language : Venezuelan Any Spiritual/Cultural Needs or Requests : No [...]
--- OUTSIDE RECORDS SUMMARY | 2024-11-23 12:31 | XMS_ITS | Encounter Summary ---
Author Organization [employer] ([place], [place], [place], [place]) Address [address] [place] [address] Care Team Providers Care Legal Instruments Examiner Name Role Phone Unavailable Primary Care Provider Unavailabl e Encounter Details Date Type Department Care Team (Late st Contact Info) Description 09/10/2019 Transcribed Document [facility] [place] [address] [place] [address] ProviderGraciela MD [address] [place] [address] Social History Tobacco Use Types Packs/Day Years [...] EDT Height Source Stated Height Entry Format [place] Height/Length, KINYARWANDA (ft) 5 ft Height/Length KINYARWANDA 11 Inch CLINICALHEIGHT 180.34 cm [place] Body Weight 74.31 kg Weight Source, ED Standing scale Weight Entry Format [place] Weight [place] lb 124 lb Weight [place] oz 5 oz CLINICALWEIGHT 56.51 kg Body [...] Assessment: ED C-SSRS: ED Clinical Reconciliation: ED photo printer: EKG: Pulse Oximetry Continuous Monitoring: Saline Lock Insert: aspirin: 324 mg, Chew, 1-Time Ordered (Dispatched) CBC w/ Auto Diff: Extra Blue Tube: Lactic Acid Level with Reflex if Indicated: ProBNP: Troponin I Ultra: Ordered (Exam Ordered) CR Chest 1 Vw Portable: Completed ED Adult Triage: . Electrocardiogram: Time 09/10/2019 10:29:00, rate 84, normal sinus rhythm, No ST changes, no ectopy, normal MO & QRS intervals, EP Interp. monitoring specialist: Normal sinus rhythm. Results review: All Results [...] % 28.1 % Lymph # 1.79 x10(3)/uL [place] % 7.8 % [place] # 0.50 K/uL Eos % 4.2 % Eos # 0.27 x10(3)/uL Baso % 0.9 % Baso # 0.06 x10(3)/uL Slide Review No IG# 0.03 x10(3)/uL IG% 0.50 % . Radiology results: Radiology Results (Last 48 hours) [id number] -- 09/10/2019 10:17 CR Chest 1 Vw [...] node.Images reviewed, interpreted, and dictated by Jose Simth MD . Reexamination/ Reevaluation Time: 09/10/2019 15:25:00 [...] 15:30 EDT, Discharge to: Home. Prescriptions: Prescription [facility]: predniSONE 20 mg oral tablet (Prescribe): [...] [facility]ENNE KAPLAN Within 3 to 5 days; [place] [facility] Within 3 to 5 days; [facility] Within 3 to 5 days Follow up Pulmonary and evaluate your COPD and christiano nodule. Follow up with Primary Care. Return to ER if symptoms worse or different.. Counseled: Patient, Regarding diagnosis, Regarding diagnostic results, Regarding treatment plan, Regarding prescription, Patient indicated understanding of instructions. Notes: I certify that the MLP/ALTERNATIVE DISPUTE RESOLUTION MEDIATOR performed the services as delegated. , Discussed with Dr. Michel and agrees with plan of care.. documented in this encounter Plan of Treatment Not on file documented as of this encounter Visit Diagnoses Not on filedocumented in this encounter
--- OUTSIDE RECORDS SUMMARY | 2024-11-23 12:31 | XMS_ITS | Encounter Summary ---
Author Organization [employer] ([place], [place], [place], [place]) Address [address] [place] [address] Care Team Providers Care Media Arts Professor Name Role Phone Unavailable Primary Care Provider Unavailabl e Reason for Referral * CAT Scan (Routine) - Closed Specialty Diagnoses / Procedures Referred By Contac t Referred To Contact Radiology Diagnoses Cigarette smoker Procedures CT Lung Screening Initial Italia Honeycutt NP [address] [place] [address] Phone: tel: fax: [facility] Imaging [address] [place] [address] Phone: tel: fax: Referral ID Status Reason Start Date Expiration Date Visits Re quested Visits Authorized [id number] Closed 06/21/2023 06/20/2024 1 1 Encounter Details Date Type Department Care Team (Late st Contact Info) Description 06/21/2023 Outside Orders [facility] [address] [place] [address] Italia Honeycutt NP [address] [place] [address] Cigarette smoker (Primary Dx) Social [...] Date Anton rded Speak language other than Swiss at home Not on file 06/21/2023 Want [...]
--- OUTSIDE RECORDS SUMMARY | 2024-11-23 12:31 | XMS_ITS | Encounter Summary ---
Author Organization [employer] ([place], [place], [place], [place]) Address [address] [place] [address] Care Team Providers Care Safety And Security Officer Name Role Phone Unavailable Primary Care Provider Unavailabl e Encounter Details Date Type Department Care Team (Late st Contact Info) Description 09/11/2019 Transcribed Document [facility] [place] [facility] [place] [address] ProviderGraciela MD [address] [place] [address] Social History Tobacco Use Types Packs/Day Years [...]
--- OUTSIDE RECORDS SUMMARY | 2024-11-23 12:31 | XMS_ITS | Encounter Summary ---
Author Organization [employer] ([place], [place], [place], [place]) Address [address] [place] [address] Care Team Providers Care Balloon Design Printer Name Role Phone Unavailable Primary Care Provider Unavailabl e Encounter Details Date Type Department Care Team (Late st Contact Info) Description 09/11/2019 Transcribed Document [facility] [facility] [place] [address] ProviderGraciela MD [address] [place] [address] Social History Tobacco Use Types Packs/Day Years [...] On: 09/11/2019 13:35 EDT by Moreno Venegas, Crochet Machine Operator Care Management Note Documentation Status Complete : Yes Moreno Venegas Crochet Machine Operator - 09/11/2019 13:35 EDT Discharge Planning Details Follow-up Appointments Made #1 : [facility]- [address] [place] [address] Office [phone] no email address Appointment Scheduled For Blaze Dc Appointment Month: September, Appointment Date: 21 04 20 PM Follow-up Appointment Date #1 : 09/20/2019 13:20 EDT Discharge Planning Details Note : Patient called in, scheduled with Deon Verde, added to discharge summary and adhoc notes. Patient was ED at [facility]- [address] [place] [address] Office [phone] no email address Appointment Scheduled For Blaze [place] Appointment Month: September, Appointment Date: 21 04 20 PM Moreno Venegas, Crochet Machine Operator - 09/11/2019 13:35 EDT documented in this encounter Plan of Treatment Not on file documented as of this encounter Visit Diagnoses Not on filedocumented in this encounter
--- OUTSIDE RECORDS SUMMARY | 2024-11-23 12:31 | XMS_ITS | Encounter Summary ---
Author Organization [employer] ([place], [place], [place], [place]) Address [address] [place] [address] Care Team Providers Care Estimation Manager Name Role Phone Unavailable Primary Care Provider Unavailabl e Encounter Details Date Type Department Care Team (Late st Contact Info) Description 09/10/2019 Transcribed Document [facility] [place] [address] [place] [address] ProviderGraciela MD [address] [place] [address] Social History Tobacco Use Types Packs/Day Years [...]
--- OUTSIDE RECORDS SUMMARY | 2024-11-23 12:32 | XMS_ITS | Clinical Summary ---
Author Organization [employer] ([place], [place], [place], [place]) Address [address] [place] [address] Care Team Providers Care Accountant Name Role Phone Unavailable Primary Care [...] Date Anton rded Speak language other than Arabic at home Not on file 06/21/2023 Want [...]
--- OUTSIDE RECORDS SUMMARY | 2024-11-23 12:32 | XMS_ITS | Referral Summary ---
Author Organization [employer] ([place], [place], [place], [place]) Address [address] [place] [address] Care Team Providers Care Ophthalmic Photographer Name Role Phone Unavailable Primary Care Provider [...] Date Anton rded Speak language other than Syriac at home Not on file 06/21/2023 Want [...]
--- OUTSIDE RECORDS SUMMARY | 2024-11-23 12:32 | XMS_ITS | Clinical Summary ---
Author Organization [facility] Address [address] [id number] Care Team Providers Care Aquarium Tank Attendant Name Role Phone Juan Pablo Ann APRN Primary Care Provider [phone] Social History Tobacco Use Types Packs/Day Years [...] Colonoscopy 01/10/2023 01/10/2013 [facility]-Colorectal Cancer Screening 01/10/2023 [id number] Vaccine (1 - 20 24-25 season) 2023 [...] provider. us Historical Provider GI PROCEDURE ORDERABLES Radha l Result from Last 3 Months or Most Recently Relevant to Health Maintenance Care Teams Aquarium Tank Attendant Relationship Specialty Start Date End Date Juan Pablo Ann APRN [address] [place] [address] PCP - General 08/15/20
--- NOTE | 2024-11-23 13:45 | CA_ITS ---
APPROVED REPORT EXAM: Comprehensive 2D, Doppler, and color-flow Echocardiogram User Acceptance Tester: Corina Eid RVT Ht: 5 ft 11 in Wt: 120lbs BSA: 1.70 BP: 152/92 mmHg Indications: CHEST PAIN,DYSPENA 2D Dimensions LA Volume 42.40 mL LA Volume Index 24.94 mL/m2 (M/F) 16-34 M-Mode Dimensions RVDd 2.71 cm (0.9-2.6) LA Diam 2.57 cm (1.9-4.0) LVDd 4.51 cm (3.5-5.7) LVDs 3.11 cm (3.5-5.7) IVSd 1.04 cm (0.6-1.1) PWd 0.50 cm (0.6-1.1) EF (Teich) 58.90% FS 31.00% EDV (Teich) 92.90 mL TAPSE 2.21 (<1.7) ESV (Teich) 38.20 mL LV Diastology E Decel Time 277 (160-240 msec) E/A Ratio 1.2 Aortic Valve TRAY Index 2.14 cm2/m2 AoV Peak Jigar. 96.0 (50-130 cm/s) AO Peak GR. 3.70 mmHg AO Mean GR. 2.10 (<5 mmHg) AO VTI 20.4 (18-25 cm) TRAY (VTI) 3.73 (2.5-4.5 cm2) Mitral Valve MV E Max Jigar. 61.0 (40-130 cm/s) MV A Velocity 49.0 (40-130 cm/s) E/A Ratio 1.26 MV PHT 81.0 ms Pulmonary Valve PV Peak Velocity 50.0 (50-150 cm/s) Left Ventricle The left ventricle is normal size. Left ventricular systolic function is normal. The left ventricular ejection fraction is within the normal range. There is normal left ventricular wall thickness. There is normal LV segmental wall motion. The left ventricular diastolic function is normal. LVEF is 55% Right Ventricle The right ventricle is normal size. The right ventricular systolic function is normal. Atria The left atrium is mildly dilated. The right atrium size is normal. There is no color Doppler evidence of interatrial shunt. Aortic Valve The aortic valve is mildly thickened. There is no hemodynamically significant aortic valvular stenosis. Trace aortic regurgitation is present. Mitral Valve The mitral valve is normal in structure. No evidence of mitral valve stenosis. Mild mitral regurgitation is present. Tricuspid Valve The tricuspid valve leaflets are thin and pliable. Trace tricuspid regurgitation. There is insufficient TR jet to estimate RVSP. Pulmonic Valve The pulmonary valve is grossly normal in structure. Trace pulmonic valve regurgitation is present. Great Vessels The aortic root is normal in size. IVC is normal in size and collapses >50% with inspiration. Pericardium There is no pericardial effusion. Other Information Study Quality: Fair Conclusion Normal biventricular systolic function. Mild LA dilation. Mild MR. Electronically signed by : Mary Peña MD 11/25/2024 14:31:32
== END 2024-11-23 23:59 | disposition home or self-care (01) ==
LOC: RT 12:30
PROVIDERS: PCP Nurse Practitioner Family; Visit Provider Nurse Practitioner Family
DX: I34.0 Nonrheumatic mitral (valve) insufficiency (principal); I51.7 Cardiomegaly
CPT/HCPCS: 93306

== ENCOUNTER 2024-11-27 09:35 | Outpatient (CLI) | payer MEDICARE, MEDICAID, SELFPAY ==
--- OUTSIDE RECORDS SUMMARY | 2024-11-27 09:37 | XMS_ITS | Encounter Summary ---
Author Organization [employer] ([place], [place], [place], [place]) Address [address] [place] [address] Care Team Providers Care Facilities Management Executive Name Role Phone Unavailable Primary Care Provider Unavailabl e Encounter Details Date Type Department Care Team (Late st Contact Info) Description 09/11/2019 Transcribed Document [facility] [facility] [place] [address] ProviderGraciela MD [address] [place] [address] Social History Tobacco Use Types Packs/Day Years [...]
--- OUTSIDE RECORDS SUMMARY | 2024-11-27 09:37 | XMS_ITS | Encounter Summary ---
Author Organization [employer] ([place], [place], [place], [place]) Address [address] [place] [address] Care Team Providers Care Packing Clerk Name Role Phone Unavailable Primary Care Provider Unavailabl e Reason for Referral * CAT Scan (Routine) - Closed Specialty Diagnoses / Procedures Referred By Contac t Referred To Contact Radiology Diagnoses Cigarette smoker Procedures CT Lung Screening Initial Italia Honeycutt NP [address] [place] [address] Phone: tel: fax: [facility] CT Imaging [address] [place] [address] Phone: tel: fax: Referral ID Status Reason Start Date Expiration Date Visits Re quested Visits Authorized [id number] Closed 06/21/2023 06/20/2024 1 1 Encounter Details Date Type Department Care Team (Late st Contact Info) Description 06/21/2023 Outside Orders [facility] [address] [place] [address] Italia Honeycutt NP [address] [place] [address] Cigarette smoker (Primary Dx) Social [...] Date Anton rded Speak language other than Marshallese at home Not on file 06/21/2023 Want [...]
--- OUTSIDE RECORDS SUMMARY | 2024-11-27 09:37 | XMS_ITS | Encounter Summary ---
Author Organization [employer] ([place], [place], [place], [place]) Address [address] [place] [address] Care Team Providers Care Safety And Security Manager Name Role Phone Unavailable Primary Care Provider Unavailabl e Encounter Details Date Type Department Care Team (Late st Contact Info) Description 09/10/2019 Transcribed Document [facility] [place] Family [place] [address] [place] [address] ProviderGraciela MD [address] [place] [address] Social History Tobacco Use Types Packs/Day Years [...] EDT Height Source Stated Height Entry Format [place] Height/Length, TELUGU (ft) 5 ft Height/Length T[place]UGU 11 Inch CLINICALHEIGHT 180.34 cm [place] Body Weight 74.31 kg Weight Source, ED Standing scale Weight Entry Format [place] Weight Frisian lb 124 lb Weight Frisian oz 5 oz CLINICALWEIGHT 56.51 kg Body [...] Assessment: ED C-SSRS: ED Clinical Reconciliation: ED hydrodynamics professor: EKG: Pulse Oximetry Continuous Monitoring: Saline Lock Insert: aspirin: 324 mg, Chew, 1-Time Ordered (Dispatched) CBC w/ Auto Diff: Extra Blue Tube: Lactic Acid Level with Reflex if Indicated: ProBNP: Troponin I Ultra: Ordered (Exam Ordered) CR Chest 1 Vw Portable: Completed ED Adult Triage: . Electrocardiogram: Time 09/10/2019 10:29:00, rate 84, normal sinus rhythm, No ST changes, no ectopy, normal MA & QRS intervals, EP Interp. equipment monitor phototypesetting: Normal sinus rhythm. Results review: All Results [...] % 28.1 % Lymph # 1.79 x10(3)/uL [place] % 7.8 % [place] # 0.50 K/uL Eos % 4.2 % Eos # 0.27 x10(3)/uL Baso % 0.9 % Baso # 0.06 x10(3)/uL Slide Review No IG# 0.03 x10(3)/uL IG% 0.50 % . Radiology results: Radiology Results (Last 48 hours) [id number] -- 09/10/2019 10:17 CR Chest 1 Vw [...] 15:30 EDT, Discharge to: Home. Prescriptions: Prescription [facility]: predniSONE 20 mg oral tablet (Prescribe): [...] ADRIENNE KAPLAN Within 3 to 5 days; [place] [facility] Within 3 to 5 days; [facility] Within 3 to 5 days Follow up Pulmonary and evaluate your COPD and christiano nodule. Follow up with Primary Care. Return to ER if symptoms worse or different.. Counseled: Patient, Regarding diagnosis, Regarding diagnostic results, Regarding treatment plan, Regarding prescription, Patient indicated understanding of instructions. Notes: I certify that the MLP/SPIRAL SPRING WINDER performed the services as delegated. , Discussed with Dr. Michel and agrees with plan of care.. documented in this encounter Plan of Treatment Not on file documented as of this encounter Visit Diagnoses Not on filedocumented in this encounter
--- OUTSIDE RECORDS SUMMARY | 2024-11-27 09:37 | XMS_ITS | Encounter Summary ---
Author Organization [employer] ([place], [place], [place], [place]) Address [address] [place] [address] Care Team Providers Care Electronics Technology Department Chair Name Role Phone Unavailable Primary Care Provider Unavailabl e Encounter Details Date Type Department Care Team (Late st Contact Info) Description 09/11/2019 Transcribed Document [facility] [place] [facility] [place] [address] ProviderGraciela MD [address] [place] [address] Social History Tobacco Use Types Packs/Day Years [...] On: 09/11/2019 13:35 EDT by Moreno Venegas, Scrubber System Attendant Care Management Note Documentation Status Complete : Yes Moreno Venegas Scrubber System Attendant - 09/11/2019 13:35 EDT Discharge Planning Details Follow-up Appointments Made #1 : [facility]- [address] [place] [address] Office [phone] no email address Appointment Scheduled For Blaze Dc Appointment Month: September, Appointment Date: 21 04 20 PM Follow-up Appointment Date #1 : 09/20/2019 13:20 EDT Discharge Planning Details Note : Patient called in, scheduled with Deon Verde, added to discharge summary and adhoc notes. Patient was ED at [facility]- [address] [place] [address] Office [phone] no email address Appointment Scheduled For Blaze Irwin Appointment Month: September, Appointment Date: 21 04 20 PM Moreno Venegas, Scrubber System Attendant - 09/11/2019 13:35 EDT Electronically signed by Redd Merino Conversion Mobile Lounge Driver Or Operator Cerner at 07/23/2022 10:38 AM CDT documented in this encounter Plan of Treatment Not on file documented as of this encounter Visit Diagnoses Not on filedocumented in this encounter
--- OUTSIDE RECORDS SUMMARY | 2024-11-27 09:37 | XMS_ITS | Encounter Summary ---
Author Organization [employer] ([place], [place], [place], [place]) Address [address] [place] [address] Care Team Providers Care Short Piece Handler Name Role Phone Unavailable Primary Care Provider Unavailabl e Encounter Details Date Type Department Care Team (Late st Contact Info) Description 02/06/2020 Transcribed Document [facility] Pulm & Critical Care Medicine [address] [place] [address] [place] [address] [place] [address] [address] [address] [place], [place] [id number] Social History Tobacco Use Types Packs/Day Years [...] for oxygen supplementation therapy. Please correlate clinically. /[id number] Yanna Nettles MD NB/AQ / NB / MODL /[id number] documented in this encounter Plan of Treatment Not on file documented as of this encounter Visit Diagnoses Not on filedocumented in this encounter
--- OUTSIDE RECORDS SUMMARY | 2024-11-27 09:37 | XMS_ITS | Encounter Summary ---
Author Organization [employer] ([place], [place], [place], [place]) Address [address] [place] [address] Care Team Providers Care Knotter Name Role Phone Unavailable Primary Care Provider Unavailabl e Encounter Details Date Type Department Care Team (Late st Contact Info) Description 09/10/2019 Transcribed Document [facility] Family Medicine [address] [place] [address] ProviderGraciela MD [address] [place] [address] Social History Tobacco Use Types Packs/Day Years [...] On: 09/10/2019 15:46 EDT by Shubham Mitchell, svp business development Discharge Process Patient Disposition : Discharge Personal Belongings With Patient : Yes Patient Education Completed : Yes Teaching Evaluation : Verbalizes understanding IV Discontinued : No Nursing Documentation Completed : Yes Shubham Mitchell, svp business development - 09/10/2019 15:46 EDT ED Discharge Discharge To : Home with ambulatory/outpatient follow-up Mode Of Departure : Ambulatory Accompanied By : Unaccompanied Discharge Instructions Reviewed With, Opportunity For Questions Given : Patient Prescriptions Given to Patient : Yes Number of Prescriptions Given : 3 Shubham Mitchell, svp business development - 09/10/2019 15:46 EDT documented in this encounter Plan of Treatment Not on file documented as of this encounter Visit Diagnoses Not on filedocumented in this encounter
--- OUTSIDE RECORDS SUMMARY | 2024-11-27 09:38 | XMS_ITS | Referral Summary ---
Author Organization [employer] ([place], [place], [place], [place]) Address [address] [place] [address] Care Team Providers Care Hand Drawer In Name Role Phone Unavailable Primary Care Provider [...] Date Anton rded Speak language other than Hungarian at home Not on file 06/21/2023 Want [...] Health Maintenance Insurance [place] [address]
--- OUTSIDE RECORDS SUMMARY | 2024-11-27 09:38 | XMS_ITS | Encounter Summary ---
Author Organization [employer] ([place], [place], [place], [place]) Address [address] [place] [address] Care Team Providers Care Tape Coater Name Role Phone Unavailable Primary Care Provider Unavailabl e Encounter Details Date Type Department Care Team (Late st Contact Info) Description 09/10/2019 Transcribed Document [facility] [place] [facility] [place] [address] ProviderGraciela MD [address] [place] [address] Social History Tobacco Use Types Packs/Day Years Used Date Smoking Tobacco: Never Assessed Sex and Gender Information Value Date Recorded Sex Assigned at Not on file Legal Sex Male 7:01 PM CDT Gender Identity Not on file Sexual Orientation Not on file documented as of this encounter Miscellaneous Notes * Cerner Conversion Note - Graciela ProviderMD - 09/10/2019 10:18 AM CDT [place] Suicide Severity Rating Scale (C-SSRS) Entered On: 09/10/2019 11:10 EDT Performed On: 09/10/2019 10:15 EDT by Caryn Ramachandran RN [place] Suicide Severity Rating Scale (C-SSRS) CSSRS Past [...]
--- OUTSIDE RECORDS SUMMARY | 2024-11-27 09:38 | XMS_ITS | Encounter Summary ---
Author Organization [employer] ([place], [place], [place], [place]) Address [address] [place] [address] Care Team Providers Care Community Assistant Name Role Phone Unavailable Primary Care Provider Unavailabl e Encounter Details Date Type Department Care Team (Late st Contact Info) Description 09/10/2019 Transcribed Document [facility] [place] [facility] [place] [address] ProviderGraciela MD [address] [place] [address] Social History Tobacco Use Types Packs/Day Years [...] On: 09/10/2019 10:15 EDT by Caryn Ramachandran, [facility] Quick Look Assessment Level of Consciousness : Alert, Awake Affect/Behavior : Appropriate, Calm, Cooperative Orientation : Oriented x 4 Skin Temperature : Warm Skin Description : Normal for ethnicity Caryn Ramachandran RN - 09/10/2019 11:08 EDT ED General-Functional Assess Information Obtained From : Patient Preferred Communication Mode : Verbal Communication Barrier : None Primary Language : Cymraes Any Spiritual/Cultural Needs or Requests : No [...]
--- OUTSIDE RECORDS SUMMARY | 2024-11-27 09:38 | XMS_ITS | Clinical Summary ---
Author Organization [facility] Address [address] [id number] Care Team Providers Care Ground Transportation Operator Name Role Phone Juan Pablo Ann APRN Primary Care Provider [phone] Social History Tobacco Use Types Packs/Day Years [...] Colonoscopy 01/10/2023 01/10/2013 [facility]-Colorectal Cancer Screening 01/10/2023 [id number] Vaccine (1 - 20 24-25 season) 2023 [...] Recently Relevant to Health Maintenance Care Teams Ground Transportation Operator Relationship Specialty Start Date End Date Juan Pablo Ann APRN [address] [place] [address] PCP - General 08/15/20
--- OUTSIDE RECORDS SUMMARY | 2024-11-27 09:38 | XMS_ITS | Encounter Summary ---
Author Organization [employer] ([place], [place], [place], [place]) Address [address] [place] [address] Care Team Providers Care Mechanical Cad Designer Name Role Phone Unavailable Primary Care Provider Unavailabl e Encounter Details Date Type Department Care Team (Late st Contact Info) Description 09/10/2019 Transcribed Document [facility] [facility] [place] [address] [place] [address] ProviderGraciela MD [address] [place] [address] Social History Tobacco Use Types Packs/Day Years [...]
--- OUTSIDE RECORDS SUMMARY | 2024-11-27 09:38 | XMS_ITS | Encounter Summary ---
Author Organization [employer] ([place], [place], [place], [place]) Address [address] [place] [address] Care Team Providers Care Back Tufter Name Role Phone Unavailable Primary Care Provider Unavailabl e Encounter Details Date Type Department Care Team (Late st Contact Info) Description 09/10/2019 Transcribed Document [facility] [place] [facility] [place] [address] ProviderGraciela MD [address] [place] [address] Social History Tobacco Use Types Packs/Day Years [...] : 3 - Urgent Tracking Group : [facility] ED Sue Mcarthur RN - 09/10/2019 10:24 EDT Mode of Arrival : Ambulatory Transported to ED by : Private vehicle To Room Via : Ambulate Accompanied By : Unaccompanied ED Vital Signs : Document Height & Weight : Document ED Allergies : Document ED Infection Control : No ED Reason for Visit : Document Tetanus Immunization : None received Information Clerk Cashier Needed : No Sue Mcarthur RN - [...] PNED ; Probability: 0 ; Diagnosis Code: [id number] ED Height and Weight Height Source : Stated Height Entry Format : [place] Height, Feet : 5 ft(Converted to: 152 cm, 60 Inch) Height, Inches : 11 Inch(Converted to: 0 ft 11 Inch, 27.94 cm) Clinical Height : 180.34 cm Weight Source, ED : Standing scale Weight Entry Format : [place] Weight, Pounds : 124 lb Weight, Ounces : 5 oz Clinical Dosing Weight : 56.51 kg Body Surface Area (BSA) : 1.72 m2 Body Mass Index : 17.4 kg/m2 (<LLOW) [place] Body Weight (IBW) : 74.31 kg Sue Mcarthur RN - 09/10/2019 10:24 EDT documented in this encounter Plan of Treatment Not on file documented as of this encounter Visit Diagnoses Not on filedocumented in this encounter
--- OUTSIDE RECORDS SUMMARY | 2024-11-27 09:38 | XMS_ITS | Encounter Summary ---
Author Organization [employer] ([place], [place], [place], [place]) Address [address] [place] [address] Care Team Providers Care Solar Hot Water Installer Name Role Phone Unavailable Primary Care Provider Unavailabl e Encounter Details Date Type Department Care Team (Late st Contact Info) Description 09/10/2019 Transcribed Document [facility] [place] [address] [place] [address] ProviderGraciela MD [address] [place] [address] Social History Tobacco Use Types Packs/Day Years Used Date Smoking Tobacco: Never Assessed Sex and Gender Information Value Date Recorded Sex Assigned at Not on file Legal Sex Male 7:01 PM CDT Gender Identity Not on file Sexual Orientation Not on file documented as of this encounter Miscellaneous Notes * Cerner Conversion Note - Graciela Reddy MD - 09/10/2019 3:31 PM CDT [facility] [place] [address] BLAZE IRWIN :1955 Visit Time:09/10/2019 [...] do next Follow-Up Appointments Follow Up with [facility] When Within 3 to 5 days Comments Follow up Pulmonary and evaluate your COPD and christiano nodule. Follow up with Primary Care. Return to ER if symptoms worse or different. Where: [address] [facility] [place] [address]- Business (1) Follow Up with [facility] When Within 3 to 5 days Where: [address] [facility], [address] [place] [address]- Business (1) Follow Up with [facility] When Within 3 to 5 days Where: [address] [facility] [address] [place] [id number]- [facility] (1) Allergies No Known Allergies Immunizations This [...] range between ( 0.0 and 7.0 ) [place] #: 0.50 K/uL -- Normal range between ( 0.16 and 1.00 ) Eos #: 0.27 x10(3)/uL -- Normal range between ( 0.00 and 0.80 ) [place] %: 7.8 % -- Normal range between [...] these instructions at home: Medicines ??? Take fvza-mdw-nuogbkr and prescription medicines (inhaled or pills) only [...] 12/29/2005 Document Revised: 09/14/2017 Document Reviewed: 04/25/2017 [employer] Interactive Patient Education ?? 2020 [employer] Pulmonary Nodule A pulmonary nodule is [...] Follow these instructions at home: ??? Take nocp-eym-rorvfav and prescription medicines only as told by [...] 01/16/2010 Document Revised: 04/19/2017 Document Reviewed: 04/19/2017 [employer] Interactive Patient Education ?? 2020 [employer]. Nonspecific Chest Pain, Adult Chest pain can [...] these instructions at home: Medicines ??? Take wgxm-cbk-xlwgrzx and prescription medicines only as told by [...] 12/29/2005 Document Revised: 02/06/2019 Document Reviewed: 09/21/2018 [employer] Interactive Patient Education ?? 2020 [employer]. Emergency Awareness and Preventative Care STROKE is [...] Assistance with quitting is available by contacting 2-878-CQDL-NOW. This is a free resource providing counseling, [...] was given the opportunity to ask questions. Patient/Bag Adjuster Name: Patient/Bag Adjuster Signature: Relationship to Patient: Clinician/Hospital Bag Adjuster Signature: Please Provide a Telephone Number Where You Can Be Reached: Is it Permissible To Leave a Message? Date: documented in this encounter Plan of Treatment Not on file documented as of this encounter Visit Diagnoses Not on filedocumented in this encounter
--- OUTSIDE RECORDS SUMMARY | 2024-11-27 09:38 | XMS_ITS | Clinical Summary ---
Author Organization [employer] ([place], [place], [place], [place]) Address [address] [place] [address] Care Team Providers Care Draw Tender Name Role Phone Unavailable Primary Care Provider [...] Date Anton rded Speak language other than Indonesian at home Not on file 06/21/2023 Want [...]
--- NOTE | 2024-11-27 09:45 | CT_ITS ---
FINAL REPORT TECHNIQUE: Thin section axial images were obtained through the lungs using a low-dose technique per lung cancer screening protocol. Reconstruction images were obtained using the axial data. Exam was performed using dose reduction technique. CLINICAL HISTORY: lung cancer screening current smoker 1ppd x 50 years COMPARISON: None FINDINGS: CTDLvol: 2.90 DLP: 114.64 Current smoker 50 pack year history Lungs: Changes of emphysema. There is evidence of prior granulomatous disease. The lungs are otherwise clear. Left upper lobe 4 mm nodule on series 4 image 33. Lymph nodes: No thoracic lymphadenopathy. Mediastinum: Heart size is normal. Pleura/pericardium: No pleural or pericardial effusion. Other: No acute abnormality in the upper abdomen. IMPRESSION: 4 mm left upper lobe nodule. Lung RADS: 2 Recommendation: 12-month follow-up low-dose chest CT Reviewed, Interpreted and Dictated by Hazel Jorgensen MD Transcribed by Sherie Verde Authenticated and [facility]
== END 2024-11-27 23:59 | disposition home or self-care (01) ==
LOC: RAD 09:36
PROVIDERS: PCP Nurse Practitioner Family; Visit Provider Nurse Practitioner Family
DX: R91.1 Solitary pulmonary nodule (principal); Z12.2 Encounter for screening for malignant neoplasm of respiratory organs; F17.210 Nicotine dependence, cigarettes, uncomplicated
CPT/HCPCS: 71271